=== PATIENT | female | born 2000 | race Caucasian/White ===

== ENCOUNTER 2018-01-20 17:25 | Emergency (ER) | payer OTHER ==
[2018-01-20 17:31] VITALS: BP 114/68
[2018-01-20] MEDS ORDERED: PROPARACAINE 0.5% OPHTH DROPS 15 ML LEFTEYE STA (18:39)
[2018-01-20] MEDS ORDERED: ERYTHROMYCIN OPHTH OINT 1 GM TUBE LEFTEYE STA (18:54)
--- NOTE | 2018-01-20 18:56 | ED Physician Documentation ---
PD HPI OPHTHO - Stated complaint Stated Complaint: LT EYE PX - Chief complaint Chief Complaint: Heent - History obtained from History obtained from: Patient - History of Present Illness Timing - onset: Other (Since yesterday she has had pain in the left eye without deficit in vision, light sensitivity or injury. She does not wear contacts.) Review of Systems Constitutional: denies: Fever, Chills Eyes: reports: Discharge, Irritation. denies: Loss of vision, Decreased vision, Photophobia Ears: denies: Loss of hearing, Ear pain PD PAST MEDICAL HISTORY - Past Medical History Past Medical History: No - Past Surgical History Past Surgical History: No - Present Medications Home Medications: Ambulatory Orders Medication Instructions Recorded Confirmed Erythromycin Base [Erythromycin 1 applic OP 5XD 7 Days #1 oint...g. 01/20/18 Ophthalmic Ointment] - Allergies Allergies/Adverse Reactions: Allergies Allergy/AdvReac Type Severity Reaction Status Date / Time No Known Drug Allergies Allergy Verified 01/20/18 17:31 - Social History Does the pt smoke?: No Smoking Status: Never smoker Does the pt have substance abuse?: No - Immunizations Immunizations are current?: Yes - POLST Patient has POLST: No PD ED PE NORMAL - Vitals Vital signs reviewed: Yes - General General: Alert and oriented X 3, No acute distress - HEENT HEENT: PERRL, EOMI, Other (There is a focal area of conjunctival redness inferomedial, it is not circumferential. On fluorescein examination that area of conjunctiva has uptake but there is no corneal uptake. [place] is 12 on that side.) - Neck Neck: Supple, no meningeal sign, No bony TTP - Neuro Neuro: Alert and oriented X 3, Normal speech Results - Vitals Vitals: Vital Signs - 24 hr 01/20/18 17:27 Temperature 36.3 C L Heart Rate 98 Respiratory 18 Rate Blood Pressure 114/68 O2 Saturation 100 Oxygen O2 Source Room air Departure - Departure Disposition: 01 Home, Self Care Clinical Impression: Conjunctival abrasion Qualifiers: Encounter type: initial encounter Laterality: left Qualified Code(s): S05.02XA - Injury of conjunctiva and corneal abrasion without foreign body, left eye, initial encounter Condition: Good Record reviewed to determine appropriate education?: Yes Instructions: ED Conjunctivitis Nonspecific Follow-Up: Lino Gamino MD [Provider Admit Priv/Credential] - Within 3 Days Prescriptions: Erythromycin Base [Erythromycin Ophthalmic Ointment] 1 applic OP 5XD 7 Days #1 oint...g.
== END 2018-01-20 19:05 | disposition home or self-care (01) ==
LOC: ED 17:25
DX: S05.02XA Injury of conjunctiva and corneal abrasion without foreign body, left eye, initial encounter (principal); W26.9XXA Contact with unspecified sharp object(s), initial encounter
CPT/HCPCS: 99282; 99283; J3490

== ENCOUNTER 2018-04-28 12:08 | Outpatient (CLI) | payer OTHER ==
[2018-04-28 14:14] LABS: MUDS CUTOFF CONCENTRATIONS CUTOFF CONC BELOW:
[2018-04-28 15:15] LABS: AMPHETAMINE SCREEN,URINE NEGATIVE (NEGATIVE); BENZODIAZEPINES SCREEN, URINE NEGATIVE (NEGATIVE); COCAINE SCREEN URINE NEGATIVE (NEGATIVE); METHADONE SCREEN, URINE NEGATIVE (NEGATIVE); METHAMPHETAMINES SCREEN, URINE NEGATIVE (NEGATIVE); OPIATE SCREEN, URINE NEGATIVE (NEGATIVE); OXYCODONE SCREEN, URINE NEGATIVE (NEGATIVE); PROPOXYPHENE SCREEN, URINE NEGATIVE (NEGATIVE); TRICYCLIC ANTIDEPRESSANT,URINE NEGATIVE (NEGATIVE)
== END 2018-04-28 23:59 | disposition home or self-care (01) ==
LOC: LAB.R 12:08
PROVIDERS: ATTEND Registered Nurse
DX: Z33.1 Pregnant state, incidental (principal)
CPT/HCPCS: 80306; 87491; 87591; 87797

== ENCOUNTER 2018-04-28 12:24 | Outpatient (CLI) | payer OTHER ==
[2018-04-28 12:43] LABS: BILIRUBIN,URINE NEGATIVE (NEGATIVE); GLUCOSE, URINE (UA) NEGATIVE (NEGATIVE); KETONES,URINE (UA) NEGATIVE (NEGATIVE); LEUKOCYTE ESTERASE, URINE NEGATIVE (NEGATIVE); NITRITE,URINE NEGATIVE (NEGATIVE); OCCULT BLOOD,URINE NEGATIVE (NEGATIVE); PH,URINE 6.5 PH (5.0-7.5); PROTEIN,URINE NEGATIVE (NEGATIVE); UROBILINOGEN,URINE 0.2 (NORMAL) E.U./dL (NORMAL)
[2018-04-28 12:44] LABS: CLARITY,URINE CLEAR (CLEAR)
[2018-04-29 12:18] LABS: HEPATITIS C ANTIBODY NON-REACTIVE (NON-REACTIVE)
[2018-04-29 13:06] LABS: HIV AG/AB 4TH GEN NON-REACTIVE (NON-REACTIVE)
== END 2018-04-28 12:25 | disposition home or self-care (01) ==
LOC: LAB 12:24
PROVIDERS: ATTEND Registered Nurse
DX: Z33.1 Pregnant state, incidental (principal)
CPT/HCPCS: 36415; 80306; 81001; 81003; 81599; 86592; 86803; 87086; 87389; 87491; 87591; 87797

== ENCOUNTER 2018-05-19 23:54 | Inpatient (IN) | payer OTHER ==
[2018-05-20] MEDS ORDERED: PENICILLIN G POTASSIUM 5,000,000 UNIT in SODIUM CHLORIDE 0.9% MINIBAG 100 ML IV ONE (01:40)
[2018-05-20] MEDS ORDERED: SODIUM CHLORIDE FLUSH 0.9% 10 ML SYRINGE IVP PRN (01:40)
[2018-05-20] MEDS ORDERED: LACTATED RINGERS 1,000 ML IV SCH (02:00)
[2018-05-20 03:06] LABS: BASOPHILS % (AUTO) 0.3 %; EOSINOPHILS # (AUTO) 0.1 10^3/uL (0.0-0.7); EOSINOPHILS % (AUTO) 0.6 %; HGB - HEMOGLOBIN 9.3 g/dL (12.0-16.0); LYMPHOCYTES # (AUTO) 4.5 10^3/uL (1.5-3.5); LYMPHOCYTES % (AUTO) 34.5 %; MEAN CORPUSCULAR HEMOGLOBIN 21.9 pg (27.0-31.0); MEAN CORPUSCULAR HGB CONC 32.1 g/dL (32.0-36.0); MEAN CORPUSCULAR VOLUME 68.3 fL (81.0-99.0); MEAN PLATELET VOLUME 8.6 fL (7.9-10.8); MONOCYTES # (AUTO) 0.7 10^3/uL (0.0-1.0); MONOCYTES % (AUTO) 5.6 %; NEUTROPHILS # (AUTO) 7.7 10^3/uL (1.5-6.6); PLT - PLATELET COUNT 302 10^3/uL (130-450); RED BLOOD COUNT 4.23 10^6/uL (4.20-5.40); RED CELL DISTRIBUTION WIDTH 17.9 % (12.0-15.0)
[2018-05-20] MEDS ORDERED: OXYTOCIN/SODIUM CHLORIDE 500 ML IV ONE (03:20)
[2018-05-20 03:31] LABS: PLATELET ESTIMATE, MANUAL NORMAL (130-450,000) (NORMAL)
[2018-05-20] MEDS ORDERED: fent/BUPIV 2 MCG/0.125% 250 ML EP ONE (03:42)
[2018-05-20] MEDS ORDERED: fentaNYL 100 MCG/2 ML VIAL IVP PRN (05:13)
[2018-05-20] MEDS ORDERED: fentaNYL 100 MCG/2 ML VIAL ONE ×2 (05:17→06:34)
[2018-05-20] MEDS ORDERED: PENICILLIN G POTASSIUM 2,500,000 UNIT in SODIUM CHLORIDE 0.9% 100ML 100 ML IV SCH (06:00)
[2018-05-20] MEDS ORDERED: LACTATED RINGERS 500 ML IV ONE (06:07)
[2018-05-20] MEDS ORDERED: NALOXONE 0.4 MG/ML VIAL IVP PRN (06:07)
[2018-05-20] MEDS ORDERED: diphenhydrAMINE INJ 50 MG/ML VIAL IVP PRN (06:07)
[2018-05-20] MEDS ORDERED: NALBUPHINE 10 MG/ML AMP IVP PRN (06:07)
[2018-05-20] MEDS ORDERED: ONDANSETRON 4 MG/2 ML VIAL IVP PRN (06:07)
[2018-05-20] MEDS ORDERED: fent/BUPIV 2 MCG/0.125% 250 ML EP PRN (06:07)
[2018-05-20] MEDS ORDERED: METOCLOPRAMIDE 10 MG/2 ML VIAL IVP PRN (06:07)
[2018-05-20] MEDS ORDERED: ePHEDrine 50 MG/ML VIAL IVP PRN (06:07)
--- NOTE | 2018-05-20 06:10 | ANESTHESIA ---
Pre-Anesthesia VS, & Labs - Diagnosis term labor - Procedure POONAM Vital Signs: Temp Pulse Resp BP Pulse Ox 36.6 C 67 18 127/85 H 100 05/20/18 00:04 05/20/18 00:04 05/20/18 00:04 05/20/18 00:04 05/20/18 00:04 Height 4 ft 10.5 in Weight (kg) 61.87 kg Body Mass Index 24.0 - NPO Last Fluid Intake: clears t/o day - Is Patient ?: Yes - Lab Results Current Lab Results: Laboratory Tests 05/20/18 02:20: WBC 13.0 H, RBC 4.23, Hgb 9.3 L, Hct 28.9 L, MCV 68.3 L, MCH 21.9 L, MCHC 32.1, RDW 17.9 H, Plt Count 302, MPV 8.6, Neut # (Auto) 7.7 H, Lymph # (Auto) 4.5 H, [place] # (Auto) 0.7, Eos # (Auto) 0.1, Baso # (Auto) 0.0, Absolute Nucleated RBC 0.00, Nucleated RBC % 0.0, Manual Slide Review Indicated, Platelet Estimate NORMAL (130-450,000), RBC Morph Micro Appear 1+ POLYCHROMASIA Lab results reviewed: Yes Fish Bones: 05/20/18 02:20 Home Medications and Allergies Active Medications Fentanyl (Fentanyl) 100 mcg IVP ONCE PRN; Protocol PRN Reason: PAIN Stop: 05/20/18 23:59 Last Admin: 05/20/18 05:23 Dose: 100 mcg Lactated Ringer's (Lr) 1,000 mls @ 150 mls/hr IV .[id number] [facility] Last Admin: 05/20/18 02:40 Dose: 150 mls/hr Penicillin G Potassium 2,500, (000 unit/ Sodium Chloride) 100 mls @ 200 mls/hr IV Q4H [facility] Sodium Chloride (Normal Saline Flush 0.9%) 10 ml IVP PRN PRN PRN Reason: NEEDED PER PROVIDER ORDERS Last Admin: 05/20/18 02:45 Dose: 10 ml Sodium Chloride (Normal Saline Flush 0.9%) 10 ml IVP 0100,0900,1700 [facility] Prenatl Vit6/Iron/FA/B12/Ca/D3 [Mteryti Combo Pack] 1 tab PO DAILY 01/20/18 Allergies/Adverse Reactions: Allergies Allergy/AdvReac Type Severity Reaction Status Date / Time No Known Drug Allergies Allergy Verified 01/20/18 17:31 Anes History & Medical History - Medical History Smoking Status: Never smoker Exam General: Alert, Oriented x3, Cooperative Dental: WNL Mouth Openin Fingerbreadth Neck Mobility: Normal Mallampati classification: II Thyromental Distance: 4-6 cm Respiratory: No respiratory distress, No accessory muscle use Cardiovascular: Regular rate Mental/Cognitive Status: Alert/Oriented X3 Plan Anesthesia Type: Epidural Consent for Procedure(s) Verified and Reviewed: Yes Code Status: Attempt Resuscitation ASA classification: 2-Mild systemic disease Is this case an emergency?: No
--- NOTE | 2018-05-20 06:21 | HISTORY & PHYSICAL EXAMINATION ---
Admit History - Visit Reason Visit Reason: Contractions - : 1 Parity: 0 Premature: 0 Ectopic: 0 : 0 Care: positive: [facility] Risk/History: positive: None Complications This : positive: None Smoking Status: Never smoker - Mother's Labs Mother's Blood Type: positive: O Mother's RH: positive: Positive GBS: positive: Group B Strep Positive Rubella Status: positive: Immune Meds/Allgy - Home Medications Home Medications: Ambulatory Orders Medication Instructions Recorded Confirmed Erythromycin Base [Erythromycin 1 applic OP 5XD 7 Days #1 oint...g. 01/20/18 Ophthalmic Ointment] Prenatl Vit6/Iron/FA/B12/Ca/D3 1 tab PO DAILY 01/20/18 01/20/18 [Mteryti Combo Pack] - Allergies Allergies/Adverse Reactions: Allergies Allergy/AdvReac Type Severity Reaction Status Date / Time No Known Drug Allergies Allergy Verified 01/20/18 17:31 Review of Systems - Constitutional Constitutional: reports: Fatigue. denies: Fever, Chills - Eyes Eyes: denies: Blurred vision, Spots in vision, Dipolpia - Cardiovascular Cariovascular: denies: Palpitations, Chest pain, Edema - Respiratory Respiratory: denies: Cough, Wheezing - Gastrointestinal Gastrointestinal: denies: Abdominal pain, Constipation, Diarrhea, Nausea, Vomiting - Genitourinary Genitourinary: denies: Dysuria - Integumentary Integumentary: denies: Rash, Pruritis - Neurological Neurological: denies: Headache Physical - Abdominal Exam Vital Signs: Temp Pulse Resp BP Pulse Ox 36.6 C 67 18 127/85 H 100 05/20/18 00:04 05/20/18 00:04 05/20/18 00:04 05/20/18 00:04 05/20/18 00:04 Contraction Intensity: positive: Strong Uterine Resting Tone: positive: Soft - Monitoring Strip Review: positive: Category I - Presentation Presentation: positive: Vertex - Vaginal Exam Membranes: positive: Membranes intact Dilation (in cm): 8-9 Effacement (%): 100 Station: positive: 0 Cervical Position: positive: Anterior - Speculum Exam Speculum Exam Performed: positive: No Plan for Labor - Plan For Labor I expect patient to be DC'd or transferred within 96 hours.: Yes Plan for Labor: HPI: This 17yo @ 40.3wks gestation phoned through the answering service on 05/20/2018 at 2135 stating she was in active labor and she was directed to present to [facility]. Upon arrival she was noted to be 4/90/-1 with a noted change to 5/90/-1 an hour later. She was admitted to L&D for management. She was a transfer of care from [facility] at 35wks gestation. Her has been notable for GERD- treated with Zantac, UTI in early - neg third trimester culture, Anemia - treated with Fe, and her GBS positive status. Dating criteria: LMP: 08/11/2017 c/w initial U/S Initial ultrasound OB History: G1: Current Medical Hx: Anxiety; depression Sugical History: none Social Hx: Never smoker, no ETOH or IVDA, Deandree. Family Hx: Asthma - mother; Diabetes - maternal grandfather Immunizations: Tdap 04/28/2018 Influenza 04/28/2018 labs: O pos, antibody neg Hgb 10.3; Hct 31.8 PLT 312 Hep B neg Rubella immune GC/CT neg RPR non-reactive Hep C neg HIV non-reactive 1 hour GTT 102 Hgb 9.0; Hct 27.6 PLT 491 Antibody neg UTOX neg GBS POSITIVE Ultrasound: FAS 01/05/2018 WNL; Anterior placenta, no previa. 3VC. Size c/w dates. A: 17yo @ 40.2wks gestation by LMP Active labor GBS positive P: Admit for expectant management Epidural per maternal request Penicillin for GBS prophylaxis Anticipate spontaneous vaginal delivery
[2018-05-20] MEDS ORDERED: LIDOCAINE 2% 10 ML MDV ONE (06:35)
--- NOTE | 2018-05-20 06:48 | PROVIDER PROGRESS NOTE ---
Labor Progress Note - Uterine Monitoring Uterine Monitoring Mode: positive: External toco Contraction Frequency (min/apart): 2-3 Contraction Intensity: positive: Strong Uterine Resting Tone: positive: Soft - Monitoring Monitor Mode: positive: External ultrasound Heart Rate Baseline: 130 Heart Rate Variability: positive: Moderate (6-25 bmp) Accelerations: positive: Present, 15x15 Decelerations: positive: None Strip Review: positive: Category I - Vaginal Exam Dilation (in cm): 8-9 Effacement (%): 100 Station: 1 Cervical Position: Anterior - Labor Progress Note Labor Progress Note/Additional Text: S: Patient sitting at edge of bed for epidural placement upon my arrival. Now she is resting in bed more comfortable with her epidural and resting left leg on peanut ball. She reports improvement in her discomfort but is feeling very tired and is hoping to nap for awhile. O: SVE 8-9/100/+1, vertex. BOW intact FHR baseline 130, moderate variability, + accels, no decels Contractions palpate firm every 2-3 minutes with soft resting tone A: 17yo @ 40.3wks gestation by LMP c/w first trimester U/S GBS positive - penicillin for prophylaxis Spontaneous active labor FHR Category I Epidural in place for pain management P: Continuous monitoring Continue rotation in bed on peanut ball Anticipate spontaneous vaginal delivery
[2018-05-20] MEDS ORDERED: LACTATED RINGERS 500 ML IV SCH (06:50)
[2018-05-20] MEDS ORDERED: IRON SUCROSE 100 MG in SODIUM CHLORIDE 0.9% 100ML 100 ML IV ONE (07:56)
[2018-05-20] MEDS ORDERED: LIDOCAINE-MPF 1% 30 ML VIAL ONE (09:22)
[2018-05-20] MEDS ORDERED: WITCH HAZEL/GLYCERIN 1 EACH MED..PAD TOP PRN (09:46)
[2018-05-20] MEDS ORDERED: HYDROCORTISONE 1% CREAM 28 GM TUBE PR PRN (09:46)
--- NOTE | 2018-05-20 10:01 | DELIVERY NOTE ---
Delivery Note - Labor Labor: positive: Spontaneous - Delivery Method Delivery Method: positive: Spontaneous vaginal delivery - Presentation Presentation: positive: Vertex, LOT - left occiput transverse - Nuchal Cord Nuchal Cord: positive: Present, Reduced - Amniotic Fluid Description Amniotic Fluid Description: positive: Clear - Episiotomy Type Episiotomy Type: positive: None - Laceration Laceration: positive: 1st degree, Vaginal - Suture Suture Type: positive: Vicryl Suture Size: positive: 3-0 - Delivery Outcome Delivery Outcome: positive: Livebirth - : positive: Placed in direct skin contact with mother, Bulb syringe, Stimulated, Warmed, [place] used sex: positive: Male - Cord Cord: positive: 3 vessels - Placenta Placenta: positive: Intact, Spontaneous, Meconium stained - Estimated Blood Loss Estimated Blood Loss (in cc): 250 - Post Delivery Events Post Delivery Events: positive: No post delivery events - Delivery Comments (Free Text/Narrative) Delivery Comments (Free Text/Narrative): This 17yo @ 40.3wks gestation presented to [facility] with c/o contractions which began at approximately 2200 on 05/19/2018. Her cervix was noted to be 4/90/-1 and vertex. FHR pattern demonstrated Category I throughout. Normal labor course. She received penicillin for GBS prophylaxis x 2 total doses. Attempted epidural placement unsuccessful in relieving patient's pain. SROM occurred at 0716 and was noted to be a moderate amount of meconium stained amniotic fluid. The patient progress to c/c/0 at 0808 for a first stage of 10 hours and 8 minutes. She progressed to spontaneously deliver a viable male at 0909 on 05/20/2018 for a total second stage of 1 hour and 1 min. Loose nuchal cord x 1 easily reduced. The was placed on maternal abdomen, stimulated, dried, and placed skin to skin. 's were 8 and 9 at 1 and 5 minutes respectively. Pitocin administered via IV for hemostasis. The umbilical cord was allowed to stop pulsating at which time it was doubly clamped by CNM and cut by FOB. Cord blood was obtained. Placenta delivered spontaneously and intact at 0914 and was noted to be meconium stained with meconium stained amniotic membranes - placenta was sent to pathology. 3VC. EBL 250mL. Uterine fundus firm and there is no excessive bleeding. The perineum, vagina, and cervix were inspected and found to have 1cm, shallow laceration in vagina at introitus which was repaired with 3-[address]-1 needle with interrupted stitch x1 in standard fashion under sterile conditions. Adequate hemostasis was achieved. Tissues well approximated. initiated. Family bonding well.
[2018-05-20] MEDS: ACETAMINOPHEN 500 MG TABLET PO SCH ×2 (10:30→18:11)
[2018-05-20] MEDS: IBUPROFEN 800 MG TABLET PO SCH ×3 (10:30→22:37)
[2018-05-20 19:12] LABS: BASOPHILS % (AUTO) 0.2 %; EOSINOPHILS % (AUTO) 0.1 %; HGB - HEMOGLOBIN 7.2 g/dL (12.0-16.0); LYMPHOCYTES # (AUTO) 4.1 10^3/uL (1.5-3.5); LYMPHOCYTES % (AUTO) 23.3 %; MEAN CORPUSCULAR HEMOGLOBIN 21.5 pg (27.0-31.0); MEAN CORPUSCULAR HGB CONC 31.1 g/dL (32.0-36.0); MEAN CORPUSCULAR VOLUME 69.2 fL (81.0-99.0); MEAN PLATELET VOLUME 8.1 fL (7.9-10.8); MONOCYTES % (AUTO) 5.6 %; NEUTROPHILS # (AUTO) 12.4 10^3/uL (1.5-6.6); NEUTROPHILS % (AUTO) 70.8 %; PLT - PLATELET COUNT 246 10^3/uL (130-450); RED BLOOD COUNT 3.33 10^6/uL (4.20-5.40); RED CELL DISTRIBUTION WIDTH 18.3 % (12.0-15.0); WHITE BLOOD COUNT 17.6 x10^3/uL (4.8-10.8)
[2018-05-20] MEDS ORDERED: IRON SUCROSE 200 MG in SODIUM CHLORIDE 0.9% 100ML 100 ML IV ONE (19:45)
[2018-05-20] MEDS: DOCUSATE SODIUM 100 MG CAPSULE PO SCH (20:07)
[2018-05-20] MEDS: SODIUM CHLORIDE FLUSH 0.9% 10 ML SYRINGE IVP SCH (20:08)
[2018-05-21] MEDS: IBUPROFEN 800 MG TABLET PO SCH ×3 (03:58→16:07)
[2018-05-21] MEDS: ACETAMINOPHEN 500 MG TABLET PO SCH ×3 (03:58→16:48)
[2018-05-21 07:30] LABS: BASOPHILS % (AUTO) 0.2 %; EOSINOPHILS % (AUTO) 0.3 %; MEAN CORPUSCULAR VOLUME 68.7 fL (81.0-99.0); MEAN PLATELET VOLUME 8.4 fL (7.9-10.8); MONOCYTES # (AUTO) 0.7 10^3/uL (0.0-1.0); MONOCYTES % (AUTO) 4.6 %; NEUTROPHILS # (AUTO) 11.2 10^3/uL (1.5-6.6); NEUTROPHILS % (AUTO) 69.9 %; PLT - PLATELET COUNT 242 10^3/uL (130-450); RED BLOOD COUNT 3.02 10^6/uL (4.20-5.40); RED CELL DISTRIBUTION WIDTH 18.4 % (12.0-15.0)
[2018-05-21 07:34] LABS: HGB - HEMOGLOBIN 6.6 g/dL (12.0-16.0)
[2018-05-21] MEDS ORDERED: HYDROcod/ACETAM 5/325 MG TABLET PO PRN (07:41)
--- NOTE | 2018-05-21 07:57 | PROVIDER PROGRESS NOTE ---
Subjective - Subjective Subjective: S: Bonding well with baby. with some difficulty. She states the baby does not want to stay latched. She has been hand expressing and teaspoon feeding and feels comfortable with this. She is hoping that once her milk comes in the baby will be more excited about staying latched. She denies CHILDERS, dizziness, or light headedness. She c/o full body soreness that is mostly in her upper back and arms. She denies consistent pain in her perineum and states her discomfort mostly occurs with prolonged periods of sitting. Mood is good. O: Hgb 9.3 on admit --> 7.2 05/20/2018 @ 7.2 --> 6.6 05/21/2018 @ 0715 BP T36.8, HR 79, BP 103-62-->98/57 [place] diffusely noted over her face normocephalic, atraumatic Heart RRR w/o M/G/R Lungs CTAB Abdomen soft and nontender with fundus firm at U-1 Bilateral LE's no edema A: 17yo -->P1 PPD#1 s/p TSVD of viable male over intact perineum Vaginal laceration repaired - intact Severe anemia -s/p IV iron transfusion x 2 - #3 pending. Asymptomatic P: Continue routine care and medications Specific attention paid to support today Consult longitudinal float operator physician to collaborate plan of care for management of severe anemia Objective - Vital Signs/Intake & Output Vital Signs: Vital Signs x48h Temp Pulse Resp BP Pulse Ox 05/21/18 04:01 36.5 C 80 16 108/57 L 100 05/21/18 00:30 36.9 C 73 16 103/62 100 Intake & Output: Intake & Output 05/18/18 05/19/18 05/20/18 05/21/18 23:59 23:59 23:59 23:59 Intake Total 2855 Output Total 475 Balance 2380 - Lab Results Fish Bones: 05/21/18 07:15 Other Labs: Lab Results x24hrs 05/21/18 05/20/18 Range/Units 07:15 18:58 WBC 16.0 H 17.6 H (4.8-10.8) x10^3/uL RBC 3.02 L 3.33 L (4.20-5.40) 10^6/uL Hgb 6.6 L* 7.2 L (12.0-16.0) g/dL Hct 20.7 L 23.0 L (37.0-47.0) % MCV 68.7 L 69.2 L (81.0-99.0) fL MCH 22.0 L 21.5 L (27.0-31.0) pg MCHC 32.0 31.1 L (32.0-36.0) g/dL RDW 18.4 H 18.3 H (12.0-15.0) % Plt Count 242 246 (130-450) 10^3/uL MPV 8.4 8.1 (7.9-10.8) fL Neut # (Auto) 11.2 H 12.4 H (1.5-6.6) 10^3/uL Lymph # (Auto) 4.0 H 4.1 H (1.5-3.5) 10^3/uL [place] # (Auto) 0.7 1.0 (0.0-1.0) 10^3/uL Eos # (Auto) 0.0 0.0 (0.0-0.7) 10^3/uL Baso # (Auto) 0.0 0.0 (0.0-0.1) 10^3/uL Absolute Nucleated RBC 0.01 0.00 x10^3/uL Nucleated RBC % 0.0 0.0 /100WBC
[2018-05-21] MEDS: HYDROcod/ACETAM 5/325 MG TABLET PO PRN ×2 (08:39→20:02)
[2018-05-21] MEDS ORDERED: diphenhydrAMINE 25 MG CAPSULE PO PRN (08:58)
[2018-05-21] MEDS ORDERED: IRON SUCROSE 200 MG in SODIUM CHLORIDE 0.9% 100ML 100 ML IV ONE (09:00)
[2018-05-21] MEDS ORDERED: diphenhydrAMINE INJ 50 MG/ML VIAL IVP PRN (09:17)
[2018-05-21] MEDS ORDERED: TRANEXAMIC ACID 1,000 MG in SODIUM CHLORIDE 0.9% 100ML 100 ML IV ONE (09:17)
[2018-05-21] MEDS: DOCUSATE SODIUM 100 MG CAPSULE PO SCH ×2 (09:53→22:34)
[2018-05-21] MEDS: SODIUM CHLORIDE FLUSH 0.9% 10 ML SYRINGE IVP SCH ×3 (09:54→22:34)
[2018-05-21] MEDS ORDERED: SODIUM CHLORIDE 0.9% 1,000 ML IV SCH (10:00)
[2018-05-21] MEDS ORDERED: CHERRY SYRUP 10 ML UDC PO ONE ×2 (10:59→17:22)
[2018-05-21] MEDS: METHYLERGONOVINE 0.2 MG/ML AMP PO SCH ×2 (11:24→17:21)
--- NOTE | 2018-05-21 11:37 | PROVIDER PROGRESS NOTE ---
Subjective - Subjective Subjective: Secondary to moderate flow of vaginal bleeding in combination with severe anemia and chronic anemia, the medical care for this patient has been handed off to Dr. Mari Caldera at this time. Pt verbalized understanding and denies questions or concerns about her care at this time. Objective - Vital Signs/Intake & Output Vital Signs: Vital Signs x48h Temp Pulse Pulse Resp BP BP Pulse Ox 05/21/18 11:00 36.6 C 85 16 111/58 L 05/21/18 10:38 36.5 C 88 16 111/62 05/21/18 07:48 36.8 C 79 16 98/57 L 99 05/21/18 04:01 36.5 C 80 16 108/57 L 100 Intake & Output: Intake & Output 05/18/18 05/19/18 05/20/18 05/21/18 23:59 23:59 23:59 23:59 Intake Total 2855 110 Output Total 475 Balance 2380 110 - Lab Results Fish Bones: 05/21/18 07:15 Other Labs: Lab Results x24hrs 05/21/18 05/21/18 05/20/18 Range/Units 07:15 07:15 18:58 WBC 16.0 H 17.6 H (4.8-10.8) x10^3/uL RBC 3.02 L 3.33 L (4.20-5.40) 10^6/uL Hgb 6.6 L* 7.2 L (12.0-16.0) g/dL Hct 20.7 L 23.0 L (37.0-47.0) % MCV 68.7 L 69.2 L (81.0-99.0) fL MCH 22.0 L 21.5 L (27.0-31.0) pg MCHC 32.0 31.1 L (32.0-36.0) g/dL RDW 18.4 H 18.3 H (12.0-15.0) % Plt Count 242 246 (130-450) 10^3/uL MPV 8.4 8.1 (7.9-10.8) fL Neut # (Auto) 11.2 H 12.4 H (1.5-6.6) 10^3/uL Lymph # (Auto) 4.0 H 4.1 H (1.5-3.5) 10^3/uL [place] # (Auto) 0.7 1.0 (0.0-1.0) 10^3/uL Eos # (Auto) 0.0 0.0 (0.0-0.7) 10^3/uL Baso # (Auto) 0.0 0.0 (0.0-0.1) 10^3/uL Absolute Nucleated RBC 0.01 0.00 x10^3/uL Nucleated RBC % 0.0 0.0 /100WBC Blood Type Blood Type Recheck O POSITIVE Antibody Screen Crossmatch IS Only 05/20/18 Range/Units 02:20 WBC (4.8-10.8) x10^3/uL RBC (4.20-5.40) 10^6/uL Hgb (12.0-16.0) g/dL Hct (37.0-47.0) % MCV (81.0-99.0) fL MCH (27.0-31.0) pg MCHC (32.0-36.0) g/dL RDW (12.0-15.0) % Plt Count (130-450) 10^3/uL MPV (7.9-10.8) fL Neut # (Auto) (1.5-6.6) 10^3/uL Lymph # (Auto) (1.5-3.5) 10^3/uL [place] # (Auto) (0.0-1.0) 10^3/uL Eos # (Auto) (0.0-0.7) 10^3/uL Baso # (Auto) (0.0-0.1) 10^3/uL Absolute Nucleated RBC x10^3/uL Nucleated RBC % /100WBC Blood Type O POSITIVE Blood Type Recheck Antibody Screen NEGATIVE Crossmatch IS Only See Detail
--- NOTE | 2018-05-21 12:05 | Ultrasound Report ---
Reason: Retained clot vs POC in lower uterine segment Procedure Date: 05/21/2018 Accession Number: [id number] / [id number] Procedure: US - Pelvic Complete CPT Code: FULL RESULT: EXAM: PELVIC ULTRASOUND EXAM DATE: 05/21/2018 11:38 AM. CLINICAL HISTORY: Retained clot versus products of conception in lower uterine segment. COMPARISON: None. TECHNIQUE: Realtime transabdominal pelvic scan performed to identify the uterus and adnexa and as an overview of other pelvic structures, with static image documentation. FINDINGS: Uterus: 18.5 x 9.0 x 13.9 cm, volume 1216 cc. Anteverted position. Heterogeneous thickened myometrium in keeping with the state. Masses: None within the myometrium. Endometrium: Normal portions of the endometrium measure approximately 10 mm. A small amount of presumed blood clot and fluid is seen in the fundal endometrium. Within the lower uterine segment near the cervix is a heterogeneous hypoechoic mass which retains a relatively spherical shape measuring 3.2 x 5.4 x 4.5 cm and has no surrounding fluid its position within the endometrium from the myometrial wall, mass effect on surrounding myometrium. Color Doppler demonstrates no internal vascularity. Cervix: See above. Right Ovary: 2.6 x 1.8 x 2.3 cm, volume 5.9 cc. Normal echotexture and blood flow. Left Ovary: 3.2 x 1.9 x 1.5 cm, volume 4.8 cc. Normal echotexture and blood flow. Free Fluid: None. Other: None. IMPRESSION: Nonvascular-appearing mass in the lower uterine segment demonstrates a sonographic appearance and shape as well as mass effect on the nearby myometrium, favor avascular tissue. CATRACHITO The call report notification system was initiated by Dr. Marcello Goodwin at 12:04 PM on 05/21/2018. ADDENDUM: 05/21/18 12:39 The above call report findings were discussed with Dr. Caldera by Dr. Marcello Goodwin at 12:45 PM on 05/21/2018.
--- NOTE | 2018-05-21 12:55 | PROVIDER PROGRESS NOTE ---
Subjective - Subjective Subjective: Asked by CNM to assume care for this 17yo P1 who is PPD #1 s/p at term. complicated by anemia--came in with Hct of 29, dropped to around 21 immediately PP and then around 18 after that this am. Pt with menses usually a soaked pad q2-3h. Reports that her PP bleeding has been more than that. Also passing lemon sized clots. Feeling tired. No CHILDERS, no SOB, no CP, no dizzy, not faint. Pt AVSS but BP on the low side. Abd soft, nt/nd. Fundus firm and NT at the umbilicus. Bedside US with possible retained POC in the SUSY. Bladder is empty. Delivery was uncomplicated. Discussed that I recommend transfusion now as she is close to having anemia that could become serious, and is having more lochia than usual. Discussed risks and benifet, questions answered and consent signed. US ordered to r/o adherent placenta. 2U PRBC transfuse now, will premedicate. TXA to treat ongoing bleeding. Methergine scheduled to try to pass clot. Formal US with possible retained POC but no peripheral flow. Will try to pass it with methergine and misoprostol. Objective - Vital Signs/Intake & Output Vital Signs: Vital Signs x48h Temp Pulse Pulse Resp BP BP Pulse Ox 05/21/18 11:00 97.9 F 85 16 111/58 L 05/21/18 10:38 97.7 F 88 16 111/62 05/21/18 07:48 98.2 F 79 16 98/57 L 99 Intake & Output: Intake & Output 05/18/18 05/19/18 05/20/18 05/21/18 23:59 23:59 23:59 23:59 Intake Total 2855 110 Output Total 475 Balance 2380 110 - Lab Results Fish Bones: 05/21/18 07:15 Other Labs: Lab Results x24hrs 05/21/18 05/21/18 05/20/18 Range/Units 07:15 07:15 18:58 WBC 16.0 H 17.6 H (4.8-10.8) x10^3/uL RBC 3.02 L 3.33 L (4.20-5.40) 10^6/uL Hgb 6.6 L* 7.2 L (12.0-16.0) g/dL Hct 20.7 L 23.0 L (37.0-47.0) % MCV 68.7 L 69.2 L (81.0-99.0) fL MCH 22.0 L 21.5 L (27.0-31.0) pg MCHC 32.0 31.1 L (32.0-36.0) g/dL RDW 18.4 H 18.3 H (12.0-15.0) % Plt Count 242 246 (130-450) 10^3/uL MPV 8.4 8.1 (7.9-10.8) fL Neut # (Auto) 11.2 H 12.4 H (1.5-6.6) 10^3/uL Lymph # (Auto) 4.0 H 4.1 H (1.5-3.5) 10^3/uL [place] # (Auto) 0.7 1.0 (0.0-1.0) 10^3/uL Eos # (Auto) 0.0 0.0 (0.0-0.7) 10^3/uL Baso # (Auto) 0.0 0.0 (0.0-0.1) 10^3/uL Absolute Nucleated RBC 0.01 0.00 x10^3/uL Nucleated RBC % 0.0 0.0 /100WBC Blood Type Blood Type Recheck O POSITIVE Antibody Screen Crossmatch IS Only 05/20/18 Range/Units 02:20 WBC (4.8-10.8) x10^3/uL RBC (4.20-5.40) 10^6/uL Hgb (12.0-16.0) g/dL Hct (37.0-47.0) % MCV (81.0-99.0) fL MCH (27.0-31.0) pg MCHC (32.0-36.0) g/dL RDW (12.0-15.0) % Plt Count (130-450) 10^3/uL MPV (7.9-10.8) fL Neut # (Auto) (1.5-6.6) 10^3/uL Lymph # (Auto) (1.5-3.5) 10^3/uL [place] # (Auto) (0.0-1.0) 10^3/uL Eos # (Auto) (0.0-0.7) 10^3/uL Baso # (Auto) (0.0-0.1) 10^3/uL Absolute Nucleated RBC x10^3/uL Nucleated RBC % /100WBC Blood Type O POSITIVE Blood Type Recheck Antibody Screen NEGATIVE Crossmatch IS Only See Detail
[2018-05-21] MEDS ORDERED: miSOPROStol 200 MCG TABLET BC ONE (13:00)
--- NOTE | 2018-05-21 18:01 | PROVIDER PROGRESS NOTE ---
Subjective - Subjective Subjective: Patient received her 1st unit of PRBC without incident. After that her IV failed and had to be restarted. Was late in getting the 2nd PRBC in. About 1/[address] the bag, patient had sx of fever. Temp found to be 100.5, then went up to 39.5 degrees. Feeling normal except for the fever. Has been very sore all over her body since delivery including legs, arms, shoulders, neck, back, and chest. None of this discomfort has worsened today. VB is much less now. No shortness of breath, no cough, no wheeze. getting a lot of support--latch has been difficult. Ambulating and urinating OK. Vulva with same amount of pain as always. VB is less. Mood is OK. PMH: anx/dep PSH none Allergies: none Meds: PNV and iron SH: no t/e/d BP and HR normal. Lungs CTA bilat. Abd soft, nt/nd Fundus firm, nontender, 4cm below umbilicus Repeat US with the organized clot vs. POC lower now--is nearly at the cervix. A/P: 17yo P1 PPD #1 s/p at term. Complicated by antepartum anemia that worsened post delivery. Received TXA x1. Then got 1.3 U of PRBC. Now having a reaction to the transfusion. Pt has been about 1 hour since her first fever and has not decompensated. Lungs are clear and no respiratory distress. No evidence of DIC clinically. Unlikely to be septic from her retained products--unlikely to spike so quickly--and uterus is nontender. Doing routine checks of the bag of blood for gram stain and cultures. Hemolysis labs, rety ping, and repeat CBC are pending. Getting tylenol. Temp could also be related to misoprostol. Will observe--supsect febrile non-hemolytic transfusion reaction. Patient was premedicated for her first unit but time passed between the first and the second. Retained product of conception vs. clot: is getting methergine scheduled. Had misoprostol 800mcg x1 today. Getting lower in the uterus pt likely to pass them without incident. Doubt that she has endomyometritis or sepsis with her tempe rature--she is not tender in the area, bleeding is less. Otherwise routine care with support. Objective - Vital Signs/Intake & Output Vital Signs: Vital Signs x48h Temp Pulse Pulse Resp BP BP 05/21/18 17:45 99.0 F 99 20 126/83 H 05/21/18 17:41 134/93 H 05/21/18 17:38 101.7 F H 106 H 20 141/76 H 05/21/18 17:26 102.6 F H 84 24 138/81 H 05/21/18 17:20 94 127/88 H 05/21/18 17:16 99.9 F H 82 22 126/84 H 05/21/18 16:55 100.9 F H 77 22 134/80 H 05/21/18 15:52 99.1 F 05/21/18 15:16 98.6 F 77 20 125/80 05/21/18 15:03 98.1 F 73 20 122/74 05/21/18 14:49 98.1 F 73 20 122/74 05/21/18 11:00 97.9 F 85 16 111/58 L 05/21/18 10:38 97.7 F 88 16 111/62 Intake & Output: Intake & Output 05/18/18 05/19/18 05/20/18 05/21/18 23:59 23:59 23:59 23:59 Intake Total 2855 653 Output Total 475 550 Balance 2380 103 - Lab Results Fish Bones: 05/21/18 07:15 Other Labs: Lab Results x24hrs 05/21/18 05/21/18 05/20/18 Range/Units 07:15 07:15 18:58 WBC 16.0 H 17.6 H (4.8-10.8) x10^3/uL RBC 3.02 L 3.33 L (4.20-5.40) 10^6/uL Hgb 6.6 L* 7.2 L (12.0-16.0) g/dL Hct 20.7 L 23.0 L (37.0-47.0) % MCV 68.7 L 69.2 L (81.0-99.0) fL MCH 22.0 L 21.5 L (27.0-31.0) pg MCHC 32.0 31.1 L (32.0-36.0) g/dL RDW 18.4 H 18.3 H (12.0-15.0) % Plt Count 242 246 (130-450) 10^3/uL MPV 8.4 8.1 (7.9-10.8) fL Neut # (Auto) 11.2 H 12.4 H (1.5-6.6) 10^3/uL Lymph # (Auto) 4.0 H 4.1 H (1.5-3.5) 10^3/uL [place] # (Auto) 0.7 1.0 (0.0-1.0) 10^3/uL Eos # (Auto) 0.0 0.0 (0.0-0.7) 10^3/uL Baso # (Auto) 0.0 0.0 (0.0-0.1) 10^3/uL Absolute Nucleated RBC 0.01 0.00 x10^3/uL Nucleated RBC % 0.0 0.0 /100WBC Blood Type Blood Type Recheck O POSITIVE Antibody Screen Crossmatch IS Only 05/20/18 Range/Units 02:20 WBC (4.8-10.8) x10^3/uL RBC (4.20-5.40) 10^6/uL Hgb (12.0-16.0) g/dL Hct (37.0-47.0) % MCV (81.0-99.0) fL MCH (27.0-31.0) pg MCHC (32.0-36.0) g/dL RDW (12.0-15.0) % Plt Count (130-450) 10^3/uL MPV (7.9-10.8) fL Neut # (Auto) (1.5-6.6) 10^3/uL Lymph # (Auto) (1.5-3.5) 10^3/uL [place] # (Auto) (0.0-1.0) 10^3/uL Eos # (Auto) (0.0-0.7) 10^3/uL Baso # (Auto) (0.0-0.1) 10^3/uL Absolute Nucleated RBC x10^3/uL Nucleated RBC % /100WBC Blood Type O POSITIVE Blood Type Recheck Antibody Screen NEGATIVE Crossmatch IS Only See Detail
[2018-05-21 18:15] LABS: BASOPHILS % (AUTO) 0.3 %; EOSINOPHILS # (AUTO) 0.1 10^3/uL (0.0-0.7); EOSINOPHILS % (AUTO) 0.4 %; HGB - HEMOGLOBIN 10.7 g/dL (12.0-16.0); LYMPHOCYTES # (AUTO) 4.8 10^3/uL (1.5-3.5); LYMPHOCYTES % (AUTO) 25.2 %; MEAN CORPUSCULAR HEMOGLOBIN 23.5 pg (27.0-31.0); MEAN CORPUSCULAR HGB CONC 32.2 g/dL (32.0-36.0); MEAN CORPUSCULAR VOLUME 73.1 fL (81.0-99.0); MEAN PLATELET VOLUME 8.2 fL (7.9-10.8); MONOCYTES # (AUTO) 0.7 10^3/uL (0.0-1.0); MONOCYTES % (AUTO) 3.8 %; NEUTROPHILS # (AUTO) 13.3 10^3/uL (1.5-6.6); NEUTROPHILS % (AUTO) 70.3 %; PLT - PLATELET COUNT 275 10^3/uL (130-450); RED BLOOD COUNT 4.54 10^6/uL (4.20-5.40); RED CELL DISTRIBUTION WIDTH 20.8 % (12.0-15.0); WHITE BLOOD COUNT 18.9 x10^3/uL (4.8-10.8)
--- NOTE | 2018-05-21 19:01 | PROVIDER PROGRESS NOTE ---
Subjective - Subjective Subjective: Pt c/o an increasing amount of pleuritic chest pain. Legs are without tenderness or swelling. Lungs CTA bilat. Cor RRR no murmurs. Pt is sitting up and speaking with ease to her family. Will do PE workup now--CT, EKG. Objective - Vital Signs/Intake & Output Vital Signs: Vital Signs x48h Temp Pulse Pulse Resp BP BP BP 05/21/18 18:50 100.9 F H 98 16 122/61 05/21/18 18:25 99.3 F 93 16 133/75 H 05/21/18 18:20 82 130/85 H 05/21/18 18:15 98.8 F 94 16 123/85 H 05/21/18 18:10 99.9 F H 95 18 130/84 H 05/21/18 18:05 100.0 F H 92 20 133/87 H 05/21/18 18:00 99.3 F 93 20 135/83 H 05/21/18 17:55 94 135/83 H 05/21/18 17:50 99.7 F H 90 20 129/78 05/21/18 17:45 99.0 F 99 20 126/83 H 05/21/18 17:41 134/93 H 05/21/18 17:38 101.7 F H 106 H 20 141/76 H 05/21/18 17:26 102.6 F H 84 24 138/81 H 05/21/18 17:20 94 127/88 H 05/21/18 17:16 99.9 F H 82 22 126/84 H 05/21/18 16:55 100.9 F H 77 22 134/80 H 05/21/18 15:52 99.1 F 05/21/18 15:16 98.6 F 77 20 125/80 05/21/18 15:03 98.1 F 73 20 122/74 05/21/18 14:49 98.1 F 73 20 122/74 05/21/18 11:00 97.9 F 85 16 111/58 L Intake & Output: Intake & Output 05/18/18 05/19/18 05/20/18 05/21/18 23:59 23:59 23:59 23:59 Intake Total 2855 653 Output Total 456 850 Balance 5669 -163 - Lab Results Fish Bones: 05/21/18 17:30 Other Labs: Lab Results x24hrs 05/21/18 05/21/18 05/21/18 Range/Units 17:30 07:15 07:15 WBC 18.9 H 16.0 H (4.8-10.8) x10^3/uL RBC 4.54 3.02 L (4.20-5.40) 10^6/uL Hgb 10.7 L 6.6 L* (12.0-16.0) g/dL Hct 33.2 L 20.7 L (37.0-47.0) % MCV 73.1 L 68.7 L (81.0-99.0) fL MCH 23.5 L 22.0 L (27.0-31.0) pg MCHC 32.2 32.0 (32.0-36.0) g/dL RDW 20.8 H 18.4 H (12.0-15.0) % Plt Count 275 242 (130-450) 10^3/uL MPV 8.2 8.4 (7.9-10.8) fL Neut # (Auto) 13.3 H 11.2 H (1.5-6.6) 10^3/uL Lymph # (Auto) 4.8 H 4.0 H (1.5-3.5) 10^3/uL [place] # (Auto) 0.7 0.7 (0.0-1.0) 10^3/uL Eos # (Auto) 0.1 0.0 (0.0-0.7) 10^3/uL Baso # (Auto) 0.0 0.0 (0.0-0.1) 10^3/uL Absolute Nucleated RBC 0.00 0.01 x10^3/uL Nucleated RBC % 0.0 0.0 /100WBC Blood Type Blood Type Recheck O POSITIVE Antibody Screen Crossmatch IS Only 05/20/18 05/20/18 Range/Units 18:58 02:20 WBC 17.6 H (4.8-10.8) x10^3/uL RBC 3.33 L (4.20-5.40) 10^6/uL Hgb 7.2 L (12.0-16.0) g/dL Hct 23.0 L (37.0-47.0) % MCV 69.2 L (81.0-99.0) fL MCH 21.5 L (27.0-31.0) pg MCHC 31.1 L (32.0-36.0) g/dL RDW 18.3 H (12.0-15.0) % Plt Count 246 (130-450) 10^3/uL MPV 8.1 (7.9-10.8) fL Neut # (Auto) 12.4 H (1.5-6.6) 10^3/uL Lymph # (Auto) 4.1 H (1.5-3.5) 10^3/uL [place] # (Auto) 1.0 (0.0-1.0) 10^3/uL Eos # (Auto) 0.0 (0.0-0.7) 10^3/uL Baso # (Auto) 0.0 (0.0-0.1) 10^3/uL Absolute Nucleated RBC 0.00 x10^3/uL Nucleated RBC % 0.0 /100WBC Blood Type O POSITIVE Blood Type Recheck Antibody Screen NEGATIVE Crossmatch IS Only See Detail
[2018-05-21] MEDS ORDERED: IOPAMIDOL-300 100 ML VIAL ONE (19:09)
[2018-05-21] MEDS ORDERED: IOPAMIDOL-300 100 ML VIAL IVP ONE (19:56)
--- NOTE | 2018-05-21 20:35 | CT Report ---
Reason: r/o PE. Pleuritic chest pain. . Procedure Date: 05/21/2018 Accession Number: [id number] / [id number] Procedure: CT - ANGIO CHEST W/WO CPT Code: FULL RESULT: EXAM: CT ANGIOGRAM CHEST EXAM DATE: 05/21/2018 07:53 PM. CLINICAL HISTORY: R/o PE. Pleuritic chest pain. . COMPARISON: None. TECHNIQUE: Routine helical imaging was performed through the chest in the pulmonary arterial phase. IV Contrast: 50 ML ISOVUE 300. Reconstructions: Coronal 3-D MIP reconstructions.Sagittal and coronal. In accordance with CT protocol optimization, one or more of the following dose reduction techniques were utilized for this exam: automated exposure control, adjustment of mA and/or KV based on patient size, or use of iterative reconstructive technique. FINDINGS: Pulmonary Arteries: Diagnostic quality: Adequate through the segmental arteries. No evidence for acute or chronic pulmonary emboli. Heart: Normal size. RV/LV is within normal limits. There is no interventricular septal bowing. There is no reflux of contrast material in the IVC. Lungs/Pleura: No consolidation, nodules, or edema. No effusions or pneumothorax. Mediastinum: Small volume pneumomediastinum. Esophagus nondilated. Lower thyroid gland unremarkable. No lymphadenopathy. Thoracic Aorta: Cardiac motion artifact proximally. Otherwise unremarkable. Upper Abdomen: Small volume extraperitoneal gas posterior to the right hepatic lobe. Approximate 4 cm area of patchy hypodensity in segment 8 of the liver. Other: Small volume emphysema and right greater than left axillae, the right posterior lower thoracic and upper lumbar paraspinal musculature and subcutaneous regions, the lower thoracic and upper lumbar epidural space. Bones are unremarkable. IMPRESSION: 1. No pulmonary embolism. 2. Lungs are clear. 3. Small volume mediastinal, body wall, extraperitoneal, and epidural emphysema as described above, presumably iatrogenic. [facility] ADDENDUM: 05/21/18 20:45 As noted in the findings section, there is a small area of mild patchy hypodensity in the posterior superior aspect of the liver which is of uncertain significance possibly an area of hypoperfusion or patchy fatty infiltration. Correlate with liver function tests. Liver MRI without and with contrast could be used to further assess.
--- NOTE | 2018-05-21 22:00 | PROVIDER PROGRESS NOTE ---
Subjective - Subjective Subjective: Pleuritic chest pain has improved, doesn't feel as "heavy". No chest pain between breaths. No SOB. Bleeding is fine. Feeling fine. AVSS alert, smiling, NAD, holding baby face is full of petechae since delivery Lungs CTA bilaterally EKG overall normal CT without PE but with some diffuse mild free air in mediastinal and other spaces. No hemolysis. Gram stain on blood was negative. A/P: 1) febrile non-hemolytic transfusion reaction: fever has resolved. No hemolysis. Blood gram stain was negative. 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 Doubt ARDS pt lacks respiratory distress, lungs are clear, CTA does not suggest any lung injury. With the free air will do continuous pulse ox tonight while sleeping. Get CXR in am. 3) Anemia is much improved 4) Will repeat US tomorrow to determine if clot has passed or not. 5) otherwise routine care. Objective - Vital Signs/Intake & Output Vital Signs: Vital Signs x48h Temp Pulse Pulse Resp BP BP BP 05/21/18 21:34 98.4 F 71 16 109/58 L 05/21/18 20:56 99.1 F 91 18 112/64 05/21/18 20:30 98.6 F 93 16 112/67 05/21/18 20:26 99.5 F 89 17 115/67 05/21/18 19:30 94 122/67 05/21/18 19:15 99 130/80 05/21/18 19:00 99.1 F 89 20 124/73 05/21/18 18:50 100.9 F H 98 16 122/61 05/21/18 18:25 99.3 F 93 16 133/75 H 05/21/18 18:20 82 130/85 H 05/21/18 18:15 98.8 F 94 16 123/85 H 05/21/18 18:10 99.9 F H 95 18 130/84 H 05/21/18 18:05 100.0 F H 92 20 133/87 H 05/21/18 18:00 99.3 F 93 20 135/83 H 05/21/18 17:55 94 135/83 H 05/21/18 17:50 99.7 F H 90 20 129/78 05/21/18 17:45 99.0 F 99 20 126/83 H 05/21/18 17:41 134/93 H 05/21/18 17:38 101.7 F H 106 H 20 141/76 H 05/21/18 17:26 102.6 F H 84 24 138/81 H 05/21/18 17:20 94 127/88 H 05/21/18 17:16 99.9 F H 82 22 126/84 H 05/21/18 16:55 100.9 F H 77 22 134/80 H 05/21/18 15:52 99.1 F 05/21/18 15:16 98.6 F 77 20 125/80 05/21/18 15:03 98.1 F 73 20 122/74 05/21/18 14:49 98.1 F 73 20 122/74 Pulse Ox 05/21/18 21:34 99 05/21/18 20:56 98 05/21/18 20:30 100 05/21/18 20:26 98 05/21/18 19:30 05/21/18 19:15 05/21/18 19:00 05/21/18 18:50 05/21/18 18:25 05/21/18 18:20 05/21/18 18:15 05/21/18 18:10 05/21/18 18:05 05/21/18 18:00 05/21/18 17:55 05/21/18 17:50 05/21/18 17:45 05/21/18 17:41 05/21/18 17:38 05/21/18 17:26 05/21/18 17:20 05/21/18 17:16 05/21/18 16:55 05/21/18 15:52 05/21/18 15:16 05/21/18 15:03 05/21/18 14:49 Intake & Output: Intake & Output 05/18/18 05/19/18 05/20/18 05/21/18 23:59 23:59 23:59 23:59 Intake Total 2855 653 Output Total 055 1225 Balance 8530 -890 - Lab Results Fish Bones: 05/21/18 17:30 Other Labs: Lab Results x24hrs 05/21/18 05/21/18 05/21/18 Range/Units 17:30 07:15 07:15 WBC 18.9 H 16.0 H (4.8-10.8) x10^3/uL RBC 4.54 3.02 L (4.20-5.40) 10^6/uL Hgb 10.7 L 6.6 L* (12.0-16.0) g/dL Hct 33.2 L 20.7 L (37.0-47.0) % MCV 73.1 L 68.7 L (81.0-99.0) fL MCH 23.5 L 22.0 L (27.0-31.0) pg MCHC 32.2 32.0 (32.0-36.0) g/dL RDW 20.8 H 18.4 H (12.0-15.0) % Plt Count 275 242 (130-450) 10^3/uL MPV 8.2 8.4 (7.9-10.8) fL Neut # (Auto) 13.3 H 11.2 H (1.5-6.6) 10^3/uL Lymph # (Auto) 4.8 H 4.0 H (1.5-3.5) 10^3/uL [place] # (Auto) 0.7 0.7 (0.0-1.0) 10^3/uL Eos # (Auto) 0.1 0.0 (0.0-0.7) 10^3/uL Baso # (Auto) 0.0 0.0 (0.0-0.1) 10^3/uL Absolute Nucleated RBC 0.00 0.01 x10^3/uL Nucleated RBC % 0.0 0.0 /100WBC Blood Type Blood Type Recheck O POSITIVE Antibody Screen Crossmatch IS Only 05/20/18 Range/Units 02:20 WBC (4.8-10.8) x10^3/uL RBC (4.20-5.40) 10^6/uL Hgb (12.0-16.0) g/dL Hct (37.0-47.0) % MCV (81.0-99.0) fL MCH (27.0-31.0) pg MCHC (32.0-36.0) g/dL RDW (12.0-15.0) % Plt Count (130-450) 10^3/uL MPV (7.9-10.8) fL Neut # (Auto) (1.5-6.6) 10^3/uL Lymph # (Auto) (1.5-3.5) 10^3/uL [place] # (Auto) (0.0-1.0) 10^3/uL Eos # (Auto) (0.0-0.7) 10^3/uL Baso # (Auto) (0.0-0.1) 10^3/uL Absolute Nucleated RBC x10^3/uL Nucleated RBC % /100WBC Blood Type O POSITIVE Blood Type Recheck Antibody Screen NEGATIVE Crossmatch IS Only See Detail
[2018-05-22] MEDS: IBUPROFEN 800 MG TABLET PO SCH ×3 (00:19→18:32)
[2018-05-22] MEDS: METHYLERGONOVINE 0.2 MG/ML AMP PO SCH (01:29)
[2018-05-22] MEDS ORDERED: CHERRY SYRUP 10 ML UDC PO ONE (01:30)
[2018-05-22] MEDS: ACETAMINOPHEN 500 MG TABLET PO SCH ×3 (01:32→21:19)
[2018-05-22] MEDS ORDERED: MORPHINE 2 MG/ML CARPUJECT IVP PRN (03:25)
--- NOTE | 2018-05-22 03:28 | XRAY Report ---
Reason: pain Procedure Date: 05/22/2018 Accession Number: [id number] / [id number] Procedure: XR - Chest 2 View X-Ray CPT Code: 35611 FULL RESULT: EXAM: CHEST RADIOGRAPHY EXAM DATE: 05/22/2018 03:00 AM. CLINICAL HISTORY: Chest pain and shortness of breath. . COMPARISON: None. TECHNIQUE: 2 views. FINDINGS: Lungs/Pleura: No alveolar consolidation or pleural effusion seen. No pneumothorax. Mediastinum: Heart size upper normal. Other: None. IMPRESSION: 1. No acute abnormality seen in the chest. RADIA
[2018-05-22] MEDS ORDERED: oxyCODONE 5 MG TABLET PO PRN ×2 (03:33→11:15)
--- NOTE | 2018-05-22 03:57 | PROVIDER PROGRESS NOTE ---
Subjective - Subjective Subjective: Was feeling OK and slept for about an hour. Woke up hurting all over including her back and chest. Hurts in arms and legs and everywhere. No shortness of breath. No increase in bleeding. 36.9 101/61 HR 57 RR 12 99%RA Pt resting in bed on her side, appears comfortable physically, moans from time to time. Easy to rouse, normal speech. Able to reposition in bed without pain flare. Cor RRR no murmurs Lungs CTA bilaterally with good excursion. Abd soft, diffusely mildly tender, no guarding. Fundus firm, nontender, at umbilicus No crepitis when palpating over chest, axilla, or back. Epidural site without erythema, warmth, or tenderness. Bedside US with ongoing retained clot vs. products of conception measuring 3.4 x 2.6 x 1.7 cm without color flow. A/P: 1) 05/21/2018 febrile non-hemolytic transfusion reaction: fever has resolved. No hemolysis. Blood gram stain was negative. Doubt any ongoing problems due to this. 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 Doubt ARDS pt lacks respiratory distress, lungs are clear, CTA does not suggest any lung injury. Vitals have remained stable since the onset of her intermittent chest pain 11h ago. Stat CXR just now was normal so doubt any ongoing extending process. 3) Anemia is improved by last CBC 4) retained POC, no evidence of infection, will go to OR in the morning for D&C. Will stop methergine. Objective - Vital Signs/Intake & Output Vital Signs: Vital Signs x48h Temp Pulse Resp BP BP Pulse Ox 05/22/18 02:47 98.1 F 61 16 110/77 100 05/22/18 01:34 97.9 F 56 L 16 103/57 L 100 05/22/18 00:33 97.9 F 58 L 16 102/57 L 99 05/21/18 23:30 98.4 F 70 16 104/66 98 05/21/18 22:20 98.4 F 88 18 115/64 87 L 05/21/18 21:34 98.4 F 71 16 109/58 L 99 05/21/18 20:56 99.1 F 91 18 112/64 98 05/21/18 20:30 98.6 F 93 16 112/67 100 05/21/18 20:26 99.5 F 89 17 115/67 98 Intake & Output: Intake & Output 05/19/18 05/20/18 05/21/18 05/22/18 23:59 23:59 23:59 23:59 Intake Total 2855 653 Output Total 475 1600 600 Balance 9413 -881 -600 - Lab Results Fish Bones: 05/21/18 17:30 Other Labs: Lab Results x24hrs 05/21/18 05/21/18 05/21/18 Range/Units 17:30 07:15 07:15 WBC 18.9 H 16.0 H (4.8-10.8) x10^3/uL RBC 4.54 3.02 L (4.20-5.40) 10^6/uL Hgb 10.7 L 6.6 L* (12.0-16.0) g/dL Hct 33.2 L 20.7 L (37.0-47.0) % MCV 73.1 L 68.7 L (81.0-99.0) fL MCH 23.5 L 22.0 L (27.0-31.0) pg MCHC 32.2 32.0 (32.0-36.0) g/dL RDW 20.8 H 18.4 H (12.0-15.0) % Plt Count 275 242 (130-450) 10^3/uL MPV 8.2 8.4 (7.9-10.8) fL Neut # (Auto) 13.3 H 11.2 H (1.5-6.6) 10^3/uL Lymph # (Auto) 4.8 H 4.0 H (1.5-3.5) 10^3/uL [place] # (Auto) 0.7 0.7 (0.0-1.0) 10^3/uL Eos # (Auto) 0.1 0.0 (0.0-0.7) 10^3/uL Baso # (Auto) 0.0 0.0 (0.0-0.1) 10^3/uL Absolute Nucleated RBC 0.00 0.01 x10^3/uL Nucleated RBC % 0.0 0.0 /100WBC Blood Type Blood Type Recheck O POSITIVE Antibody Screen Crossmatch IS Only 03/07/19 Range/Units 02:20 WBC (4.8-10.8) x10^3/uL RBC (4.20-5.40) 10^6/uL Hgb (12.0-16.0) g/dL Hct (37.0-47.0) % MCV (81.0-99.0) fL MCH (27.0-31.0) pg MCHC (32.0-36.0) g/dL RDW (12.0-15.0) % Plt Count (130-450) 10^3/uL MPV (7.9-10.8) fL Neut # (Auto) (1.5-6.6) 10^3/uL Lymph # (Auto) (1.5-3.5) 10^3/uL [place] # (Auto) (0.0-1.0) 10^3/uL Eos # (Auto) (0.0-0.7) 10^3/uL Baso # (Auto) (0.0-0.1) 10^3/uL Absolute Nucleated RBC x10^3/uL Nucleated RBC % /100WBC Blood Type O POSITIVE Blood Type Recheck Antibody Screen NEGATIVE Crossmatch IS Only See Detail
[2018-05-22] MEDS ORDERED: ACETAMINOPHEN 1,000 MG/100 ML 100 ML IV PRN (04:21)
--- NOTE | 2018-05-22 04:23 | PROVIDER PROGRESS NOTE ---
Subjective - Subjective Subjective: Pt consented for D&C. Procedure described. Indication is for retained clot vs. products of conception in the uterus failing medical management. No good alternatives. Risks bleeding, infection, trauma to local organs, anesthesia complications, failure to cure. No questions. Consent signed. NPO. Objective - Vital Signs/Intake & Output Vital Signs: Vital Signs x48h Temp Pulse Resp BP BP Pulse Ox 05/22/18 03:50 98.4 F 57 L 12 101/61 99 05/22/18 02:47 98.1 F 61 16 110/77 100 05/22/18 01:34 97.9 F 56 L 16 103/57 L 100 05/22/18 00:33 97.9 F 58 L 16 102/57 L 99 05/21/18 23:30 98.4 F 70 16 104/66 98 05/21/18 22:20 98.4 F 88 18 115/64 87 L 05/21/18 21:34 98.4 F 71 16 109/58 L 99 05/21/18 20:56 99.1 F 91 18 112/64 98 05/21/18 20:30 98.6 F 93 16 112/67 100 05/21/18 20:26 99.5 F 89 17 115/67 98 Intake & Output: Intake & Output 05/19/18 05/20/18 05/21/18 05/22/18 23:59 23:59 23:59 23:59 Intake Total 2855 653 Output Total 475 1600 1200 Balance 3517 -819 -1200 - Lab Results Fish Bones: 05/21/18 17:30 Other Labs: Lab Results x24hrs 05/21/18 05/21/18 05/21/18 Range/Units 17:30 07:15 07:15 WBC 18.9 H 16.0 H (4.8-10.8) x10^3/uL RBC 4.54 3.02 L (4.20-5.40) 10^6/uL Hgb 10.7 L 6.6 L* (12.0-16.0) g/dL Hct 33.2 L 20.7 L (37.0-47.0) % MCV 73.1 L 68.7 L (81.0-99.0) fL MCH 23.5 L 22.0 L (27.0-31.0) pg MCHC 32.2 32.0 (32.0-36.0) g/dL RDW 20.8 H 18.4 H (12.0-15.0) % Plt Count 275 242 (130-450) 10^3/uL MPV 8.2 8.4 (7.9-10.8) fL Neut # (Auto) 13.3 H 11.2 H (1.5-6.6) 10^3/uL Lymph # (Auto) 4.8 H 4.0 H (1.5-3.5) 10^3/uL [place] # (Auto) 0.7 0.7 (0.0-1.0) 10^3/uL Eos # (Auto) 0.1 0.0 (0.0-0.7) 10^3/uL Baso # (Auto) 0.0 0.0 (0.0-0.1) 10^3/uL Absolute Nucleated RBC 0.00 0.01 x10^3/uL Nucleated RBC % 0.0 0.0 /100WBC Blood Type Blood Type Recheck O POSITIVE Antibody Screen Crossmatch IS Only 05/20/18 Range/Units 02:20 WBC (4.8-10.8) x10^3/uL RBC (4.20-5.40) 10^6/uL Hgb (12.0-16.0) g/dL Hct (37.0-47.0) % MCV (81.0-99.0) fL MCH (27.0-31.0) pg MCHC (32.0-36.0) g/dL RDW (12.0-15.0) % Plt Count (130-450) 10^3/uL MPV (7.9-10.8) fL Neut # (Auto) (1.5-6.6) 10^3/uL Lymph # (Auto) (1.5-3.5) 10^3/uL [place] # (Auto) (0.0-1.0) 10^3/uL Eos # (Auto) (0.0-0.7) 10^3/uL Baso # (Auto) (0.0-0.1) 10^3/uL Absolute Nucleated RBC x10^3/uL Nucleated RBC % /100WBC Blood Type O POSITIVE Blood Type Recheck Antibody Screen NEGATIVE Crossmatch IS Only See Detail
[2018-05-22] MEDS: MORPHINE 2 MG/ML CARPUJECT IVP PRN ×2 (04:36→06:59)
[2018-05-22] MEDS: SODIUM CHLORIDE FLUSH 0.9% 10 ML SYRINGE IVP SCH (04:36)
[2018-05-22] MEDS ORDERED: SODIUM CHLORIDE FLUSH 0.9% 10 ML SYRINGE ONE ×2 (04:39→06:57)
[2018-05-22] MEDS ORDERED: SODIUM CHLORIDE 0.9% 1,000 ML IV PRN ×2 (05:00→11:27)
[2018-05-22] MEDS ORDERED: KETOROLAC 30 MG/ML VIAL IVP PRN (06:00)
--- NOTE | 2018-05-22 08:53 | ANESTHESIA ---
Pre-Anesthesia VS, & Labs - Diagnosis bleeding, retained clot vs placenta - Procedure D & C Vital Signs: Temp Pulse Resp BP Pulse Ox 36.5 C 63 16 114/82 H 100 05/22/18 06:57 05/22/18 06:57 05/22/18 06:57 05/22/18 06:57 05/22/18 06:57 Height 4 ft 10.5 in Weight (kg) 61.87 kg Body Mass Index 24.0 - NPO >8 hours - Is Patient ?: No, Not Applicable - Lab Results Current Lab Results: Laboratory Tests 05/21/18 17:30: WBC 18.9 H, RBC 4.54, Hgb 10.7 L, Hct 33.2 L, MCV 73.1 L, MCH 23.5 L, MCHC 32.2, RDW 20.8 H, Plt Count 275, MPV 8.2, Neut # (Auto) 13.3 H, Lymph # (Auto) 4.8 H, Gove # (Auto) 0.7, Eos # (Auto) 0.1, Baso # (Auto) 0.0, Absolute Nucleated RBC 0.00, Nucleated RBC % 0.0 05/21/18 07:15: Blood Type Recheck O POSITIVE 05/21/18 07:15: WBC 16.0 H, RBC 3.02 L, Hgb 6.6 L*, Hct 20.7 L, MCV 68.7 L, MCH 22.0 L, MCHC 32.0, RDW 18.4 H, Plt Count 242, MPV 8.4, Neut # (Auto) 11.2 H, Lymph # (Auto) 4.0 H, Gove # (Auto) 0.7, Eos # (Auto) 0.0, Baso # (Auto) 0.0, Absolute Nucleated RBC 0.01, Nucleated RBC % 0.0 05/20/18 18:58: WBC 17.6 H, RBC 3.33 L, Hgb 7.2 L, Hct 23.0 L, MCV 69.2 L, MCH 21.5 L, MCHC 31.1 L, RDW 18.3 H, Plt Count 246, MPV 8.1, Neut # (Auto) 12.4 H, Lymph # (Auto) 4.1 H, Gove # (Auto) 1.0, Eos # (Auto) 0.0, Baso # (Auto) 0.0, Absolute Nucleated RBC 0.00, Nucleated RBC % 0.0 05/20/18 02:20: Blood Type O POSITIVE, Antibody Screen NEGATIVE, Crossmatch IS Only See Detail 05/20/18 02:20: WBC 13.0 H, RBC 4.23, Hgb 9.3 L, Hct 28.9 L, MCV 68.3 L, MCH 21.9 L, MCHC 32.1, RDW 17.9 H, Plt Count 302, MPV 8.6, Neut # (Auto) 7.7 H, Lymph # (Auto) 4.5 H, Gove # (Auto) 0.7, Eos # (Auto) 0.1, Baso # (Auto) 0.0, Absolute Nucleated RBC 0.00, Nucleated RBC % 0.0, Manual Slide Review Indicated, Platelet Estimate NORMAL (130-450,000), RBC Morph Micro Appear 1+ POLYCHROMASIA Fish Bones: 05/21/18 17:30 Home Medications and Allergies Active Medications Acetaminophen (Ofirmev) 100 mls @ 400 mls/hr IV Q6HR PRN PRN Reason: PAIN Last Infusion: 05/22/18 07:30 Dose: Infused Sodium Chloride (Normal Saline 0.9%) 1,000 mls @ 125 mls/hr IV .Q8H PRN PRN Reason: START PRN THIRST WHILE NPO Ketorolac Tromethamine (Toradol Inj (30mg)) 30 mg IVP Q6HR PRN PRN Reason: PAIN Stop: 05/27/18 05:59 Last Admin: 05/22/18 06:59 Dose: 30 mg Morphine Sulfate (Morphine (Carpuject)) 2 mg IVP Q1H PRN PRN Reason: PAIN Last Admin: 05/22/18 06:59 Dose: 2 mg Prenatl Vit6/Iron/FA/B12/Ca/D3 [Mteryti Combo Pack] 1 tab PO DAILY 01/20/18 Allergies/Adverse Reactions: Allergies Allergy/AdvReac Type Severity Reaction Status Date / Time No Known Drug Allergies Allergy Verified 01/20/18 17:31 Anes History & Medical History - Anesthetic History Anesthesia Complications: reports: No previous complications - Medical History Cardiovascular: reports: None Pulmonary: reports: Other (had some subcutaneous emphysema after pushing during labor, also developed mild hemolytic blood transfusion reaction post , chest CT and angio's negative for PE.) Gastrointestinal: reports: None Urinary: reports: None Smoking Status: Never smoker - Obstetrical History : 1 Parity: 0 Events: positive: None Complications: positive: None Exam General: Alert Dental: WNL Mouth Opening: Greater than 4 Fingerbreadths Neck Mobility: Normal Mallampati classification: I Respiratory: Lungs clear Cardiovascular: Regular rate, Normal S1, Normal S2 Mental/Cognitive Status: Alert/Oriented X3 Plan Anesthesia Type: General, MAC Consent for Procedure(s) Verified and Reviewed: Yes Code Status: Attempt Resuscitation ASA classification: 2-Mild systemic disease Is this case an emergency?: No
--- NOTE | 2018-05-22 09:01 | PROVIDER PROGRESS NOTE ---
Subjective - Subjective Subjective: S: same pain all over the body, c/o 5/10 pain gets morphine sleeps--and when awakened and sedated she complains that the morphine didn't help at all. Nothing new in terms of bleeding, breasts, or urination. O: AVSS Alert, pumping, sitting up in bed, appears comfortable Abd soft, nt/nd Fundus firm, NT, 2cm below U A/P: to OR now for D&C for retained POC. Will do brief US now. Objective - Vital Signs/Intake & Output Vital Signs: Vital Signs x48h Temp Pulse Resp BP BP Pulse Ox 05/22/18 06:57 97.7 F 63 16 114/82 H 100 05/22/18 03:50 98.4 F 57 L 12 101/61 99 05/22/18 02:47 98.1 F 61 16 110/77 100 05/22/18 01:34 97.9 F 56 L 16 103/57 L 100 Intake & Output: Intake & Output 05/19/18 05/20/18 05/21/18 05/22/18 23:59 23:59 23:59 23:59 Intake Total 2855 653 100 Output Total 475 1600 1200 Balance 2380 -947 -1100 - Lab Results Fish Bones: 05/21/18 17:30 Other Labs: Lab Results x24hrs 05/21/18 05/21/18 05/20/18 Range/Units 17:30 07:15 02:20 WBC 18.9 H (4.8-10.8) x10^3/uL RBC 4.54 (4.20-5.40) 10^6/uL Hgb 10.7 L (12.0-16.0) g/dL Hct 33.2 L (37.0-47.0) % MCV 73.1 L (81.0-99.0) fL MCH 23.5 L (27.0-31.0) pg MCHC 32.2 (32.0-36.0) g/dL RDW 20.8 H (12.0-15.0) % Plt Count 275 (130-450) 10^3/uL MPV 8.2 (7.9-10.8) fL Neut # (Auto) 13.3 H (1.5-6.6) 10^3/uL Lymph # (Auto) 4.8 H (1.5-3.5) 10^3/uL [place]cher # (Auto) 0.7 (0.0-1.0) 10^3/uL Eos # (Auto) 0.1 (0.0-0.7) 10^3/uL Baso # (Auto) 0.0 (0.0-0.1) 10^3/uL Absolute Nucleated RBC 0.00 x10^3/uL Nucleated RBC % 0.0 /100WBC Blood Type O POSITIVE Blood Type Recheck O POSITIVE Antibody Screen NEGATIVE Crossmatch IS Only See Detail
[2018-05-22] MEDS ORDERED: SODIUM CHLORIDE 0.9% 500 ML IV ONE (09:10)
--- NOTE | 2018-05-22 09:52 | OPERATIVE REPORT ---
Operative Report - General Admit Date: 05/20/18 Procedure Date: 05/22/18 Planned Procedure: Dilation and curettage Pre-Op Diagnosis: Intrauterine debris persistent 2 days Procedure Performed: Dilation and curettage Post Op Diagnosis: Retained uterine debris - Procedure Note Primary Surgeon: Mari Caldera Secondary Surgeon: Lidia Anesthesia Technique: MAC Pathology: Uterine contents IV Fluids (mL): 400 Estimated Blood Loss (mL): 100 Urine Output (mL): 0 (Not drained. Not full by US. ) Findings: Retained uterine contents by bedside ultrasound immediately preoperatively. Empty uterus by US at the end of the procedure. Complications: none - Other Other Information/Narrative: Counts correct x1 Disposition PACU Prophylaxis: SCD to lower extremity. No antibiotics indicated.
[2018-05-22] MEDS ORDERED: SODIUM CHLORIDE FLUSH 0.9% 10 ML SYRINGE IVP PRN (09:53)
[2018-05-22] MEDS ORDERED: ONDANSETRON 4 MG/2 ML VIAL IVP PRN (09:53)
[2018-05-22] MEDS ORDERED: LACTATED RINGERS 1,000 ML IV SCH (10:00)
[2018-05-22] MEDS ORDERED: KETAMINE 500 MG/10 ML VIAL IVP ONE (10:01)
[2018-05-22] MEDS ORDERED: fentaNYL 100 MCG/2 ML VIAL IVP ONE (10:01)
[2018-05-22] MEDS ORDERED: MIDAZOLAM 2 MG/2 ML VIAL IVP ONE (10:01)
[2018-05-22] MEDS ORDERED: PROPOFOL 200 MG/20 ML VIAL IVP ONE (10:01)
[2018-05-22] MEDS ORDERED: LIDOCAINE-MPF 2% 5 ML VIAL IM ONE (10:01)
[2018-05-22] MEDS ORDERED: WITCH HAZEL/GLYCERIN 1 EACH MED..PAD TOP PRN (11:28)
[2018-05-22] MEDS ORDERED: diphenhydrAMINE INJ 50 MG/ML VIAL IVP PRN (11:30)
[2018-05-22] MEDS ORDERED: diphenhydrAMINE 25 MG CAPSULE PO PRN (11:30)
[2018-05-22] MEDS ORDERED: HYDROCORTISONE 1% CREAM 28 GM TUBE PR PRN (11:31)
[2018-05-22] MEDS ORDERED: SIMETHICONE CHEW 80 MG TABLET PO SCH (14:00)
[2018-05-22] MEDS ORDERED: SODIUM CHLORIDE FLUSH 0.9% 10 ML SYRINGE IVP SCH (17:00)
--- NOTE | 2018-05-22 18:14 | OPERATIVE REPORT ---
DATE OF SERVICE: 05/22/2018 Physician: Mari Caldera MD PREOPERATIVE DIAGNOSIS: Retained uterine debris post-delivery. POSTOPERATIVE DIAGNOSES: Retained uterine debris post-delivery. PROCEDURE PERFORMED: Dilation and curettage of the uterus. SURGEON: Mari Caldera MD SENIOR ACCOUNTING CLERK: None. ANESTHESIA: MAC. ESTIMATED BLOOD LOSS: 100 mL IV FLUIDS: 400 mL URINE OUTPUT: None - not catheterized. COUNTS: Correct x2. COMPLICATIONS: None apparent. DISPOSITION: Stable to the operating room. PROPHYLAXIS: SCDs to the bilateral lower extremities. No antibiotics indicated. FINDINGS: The patient had a retained clot versus placenta persistent in the lower uterine segment, f ailing medical management. She had retention of this debris immediately prior to surgery. By the en d of surgery, the debris was gone by ultrasound. DESCRIPTION OF PROCEDURE: The patient was brought to the operating room and underwent IV sedation. She was placed in low lithotomy in [facility]. She was prepped and draped in the usual steril e fashion. A speculum was placed and a ring forceps was applied to the anterior lip of the cervix. The cervix was already dilated to about 16 mm. A ring forceps was inserted into the upper cervix and lower uterus to extract the retained debris. It did appear to be a blood clot. No placental or mem branous parts were identified. I did two passes with a size 14 curved curette under very mild suctio n under 30 mmHg. Ultrasound revealed what appeared to be an empty uterus, but also there was some hy perechoic areas in the lower uterine segment that could represent more products. A gentle pass with a sharp curette was made. A 7 mm flexible suction curette was used to gently remove the remaining ti ssue. After this, ultrasound revealed no hyperechoic areas. The ring forceps was removed from her c ervix. Uterine massage was performed. The patient had a normal amount of bleeding that then tapered off over the next 5 minutes. All instruments were removed. The Betadine was washed from her body. She was awakened in the supine position. TD: 05/22/2018 10:08
[2018-05-22] MEDS: DOCUSATE SODIUM 100 MG CAPSULE PO SCH (21:20)
[2018-05-23] MEDS: IBUPROFEN 800 MG TABLET PO SCH ×2 (00:43→08:38)
[2018-05-23] MEDS: ACETAMINOPHEN 500 MG TABLET PO SCH (06:14)
--- NOTE | 2018-05-23 08:14 | Discharge Plan ---
Discharge Plan Disposition: 01 Home, Self Care Condition: Good Diet: Regular Activity Restrictions: routine Shower Restrictions: No Driving Restrictions: No No Smoking: If you smoke, Please STOP! Call for help. Follow-up with: Mari Caldera MD [Provider Admit Priv/Credential] -
--- NOTE | 2018-05-23 08:19 | PROVIDER PROGRESS NOTE ---
Subjective - Subjective Subjective: meets discharge critera, doing very well. See discharge summary. Objective - Vital Signs/Intake & Output Vital Signs: Vital Signs x48h Temp Pulse Resp BP BP Pulse Ox 05/23/18 07:31 98.2 F 72 18 108/72 100 05/23/18 06:18 97.9 F 69 18 102/70 100 05/23/18 00:38 97.7 F 63 20 99/53 L 99 Intake & Output: Intake & Output 05/20/18 05/21/18 05/22/18 05/24/18 23:59 23:59 23:59 00:59 Intake Total 2855 653 845 150 Output Total 475 1600 2450 Balance 1958 -648 -1517 150 - Lab Results Fish Bones: 05/21/18 17:30
[2018-05-23] MEDS: DOCUSATE SODIUM 100 MG CAPSULE PO SCH (08:38)
[2018-05-23 08:56] VITALS: BP 111/71
--- NOTE | 2018-05-23 12:53 | Labor Flowsheet ---
Labor Flowsheet Datetime Report Generated by CPN: 05/23/2018 12:53 Datetime: 05/23/2018 08:05 VITAL SIGNS NBP Sys/Slime/Mean (mmHg): 111 : 71 : 80 Pulse: 63 LaborFlag: Labor Datetime: 05/22/2018 11:25 SpO2 (%): 99 Datetime: 05/20/2018 09:16 Stage 2 Comments: 250 mls blood loss Datetime: 05/20/2018 09:09 UTERINE ACTIVITY Monitor Mode: External Frequency (min): 1.5-2 Quality: Strong Duration (sec): 60-90 Resting Tone (Palpate): Relaxed ASSESSMENT A Monitor Mode: External US Monitor Interventions for FHR: Ultrasound Adjusted FHR Baseline Rate : 135 Variability: Moderate 6-25 bpm Accelerations: 15X15 Decelerations: Variable Category: Category II Comments: PATIENT CARE Oxygen Method: Room Air Datetime: 05/20/2018 09:01 Pushing Position: Pushing with Contractions Pushing Progress: Perineal Bulging; Presenting Part Visible; Pushing Effectively with Contractions Datetime: 05/20/2018 09:00 Monitor Interventions for UA: [place] Adjusted Patient Position/Activity: Low Fowlers Datetime: 05/20/2018 08:21 Membranes Ruptured Date/Time: 05/20/2018 07:16 Datetime: 05/20/2018 08:15 COMMUNICATION Communication: RN at Bedside; Provider at Bedside Datetime: 05/20/2018 08:09 VAGINAL EXAM Dilatation (cm): 10.0 STAGE 2 Pushing: Urge to Push Datetime: 05/20/2018 08:05 Contraction Comments: Going to push to see if anterior lip will resolve Datetime: 05/20/2018 07:35 Respirations: 20 Temperature (C): 36.8 Datetime: 05/20/2018 07:16 Membrane Status: Ruptured Membranes Rupture Method: Spontaneous Amniotic Fluid Color: Heavy Meconium Amniotic Fluid Amount: Small Amniotic Fluid Odor: Normal Membrane Comments: srom during SVE, thick mec Datetime: 05/20/2018 06:50 Temperature Route: Oral Datetime: 05/20/2018 06:44 Pain Presence: Intermittent Pain Type: Contraction; Pressure Pain Location: Abdomen; Back Pain Relief Measures: Anesthesia assessing pt. Pt crying with contractions. Datetime: 05/20/2018 06:43 I/O Interventions: Richards Cath Inserted (Annotations: 50 cc's returned. Per pt, she voided on pad j ust prior to insertion.) Datetime: 05/20/2018 06:32 Anesthesia Comments: fentanyl added to epidural by anesthesia Datetime: 05/20/2018 06:22 Pain Assessment Comments: Anesthesia back in to see pt, getting more uncomfortable. Datetime: 05/20/2018 06:00 PAIN Pain Scale: 5 (Annotations: pt dozing off.) Datetime: 05/20/2018 05:56 Effacement (%): 90 Station: 1 Exam by: Henry Lomas CNM Vaginal Bleeding: Normal Show Cervix, Position: Anterior Datetime: 05/20/2018 05:42 Epidural Positioning: Side Lying Epidural Procedure: Completed Datetime: 05/20/2018 05:41 Comfort Measures: Breathing/Relaxation Datetime: 05/20/2018 05:32 ANESTHESIA Anesthesia Plans: Local Datetime: 05/20/2018 05:16 MEDICATIONS Analgesics/Sedatives: Fentanyl (mcg) @ 100 Datetime: 05/20/2018 05:00 Patient Care Comments: voided Datetime: 05/20/2018 04:59 Medication Comments: nitrous oxide Datetime: 05/20/2018 03:47 PROCEDURE TIME OUT Procedure Verify: Correct Patient Identity Datetime: 05/20/2018 03:00 Pattern: Normal: <= 5 Contractions in 10 Minutes Datetime: 05/20/2018 02:45 Antibiotics: Penicillin IV (Units) @ 5,000,000
--- NOTE | 2018-05-23 17:02 | DISCHARGE SUMMARY ---
Physician: Mari Caldera MD DATE OF ADMISSION: 05/20/2018 DATE OF DISCHARGE: 05/23/2018 OPERATIONS AND PROCEDURES 1. On 05/20/2018, spontaneous vaginal delivery of a live born male. Estimated blood loss was 250 mL. Patient was delivered at 40 weeks 3 days. 2. Dilation and curettage on 05/22/2018 for retained uterine debris. ADMISSION DIAGNOSES 1. Spontaneous labor at 40 weeks 3 days. 2. Chronic anemia. DISCHARGE DIAGNOSES 1. Status post spontaneous delivery at term. 2. Chronic and acute blood loss anemia. 3. Nonhemolytic febrile transfusion reaction. 4. Retained uterine debris. 5. Yvan syndrome. HOSPITAL COURSE: Patient was admitted in spontaneous labor. She had been chronically anemic and was on iron as an antepartum patient. She had an uncomplicated delivery. The following day a routine blood count was performed revealing a hemoglobin of 6.6. Patient was feeling weak, but no other anemia symptoms were present. However, the patient had an abnormal amount of vaginal bleeding reflecting ongoing blood loss. Care was transferred from midwifery to physician care. Ultrasound was performed, and the patient did have some retained uterine debris. Patient was given tranexamic acid to slow her bleeding down. She was given Methergine and misoprostol to try to help her pass the debris. She was also consented for blood transfusion due to her profound anemia, combined with ongoing blood loss. An ultrasound was performed, and there was no abnormal color flow to the retained debris, reflecting that probably there was no adherent placenta left. The patient's IV became nonfunctioning between the first and second units of blood. There is about a 6-hour gap between the start of the first and the start of the second. The patient had been premedicated with Benadryl and Tylenol before the first unit but was not premedicated prior to the second. About third of the way into her second unit, the patient complained of feeling warm. The patient's fever increased. The transfusion was immediately discontinued, and the blood bank was involved with evaluating her transfusion reaction. No hemolysis was seen, and proper matching was verified. The donors blood was negative for Gram stain and never grew out any bacteria. A few hours after the transfusion was stopped, the patient began complaining of significant pleuritic chest pain. She went to CT scan to rule out pulmonary embolism. She did not have a PE, nor did she have any evidence of ARDS following her transfusion reaction. However, the CT did reveal free air in her epidural space, as well as a small volume of emphysema in the mediastinum body wall extraperitoneal area and epidural space. The patient had no crepitus. She was not in any respiratory distress. An EKG was normal. Her vitals remained normal throughout this entire process. 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 The patient's valsalva power was evidenced by her widespread facial petichia seen immediately after delivery. [facility] at [facility] was consulted, and they did not have any further recommendations other than supportive care. The patient remained very stable with her vital signs. Eventually her chest pain did improve. The patient's retained uterine debris failed to be expelled with medical management. She never had any evidence of infection in this area; her temperature remained normal after her transfusion reaction. She was not tachycardic, and she did not have any increasing uterine pain. This is why the D and C was delayed, waiting for medical management to work. The following day the debris remained, and the decision was made to proceed to the OR for dilation and curettage. The procedure was uncomplicated, and it appeared to be only clot that came out. Following the D and C, the patient did very well. She was eating, ambulating, and urinating without difficulties. She was tired, but her mood was good. Her was excellent with a great latch. She was not complaining of any new symptoms. DISCHARGE EXAMINATION: Afebrile, normal vital signs. The patient is sleepy, but in no apparent distress. Abdomen soft, nontender, nondistended. Fundus firm, nontender, and 1 cm above the umbilicus. The patient's bladder was full, and she was hunched in bed. There was no lower extremity edema. No calf tenderness or warmth. Post-transfusion hematocrit was 33.2, hemoglobin 10.7. DISCHARGE PRECAUTIONS: Routine precautions given. Patient is to immediately return as well p.r.n. any heavy bleeding, headaches, faintness, or feeling otherwise poorly. DISCHARGE DISPOSITION: Home. CONDITION: Good. FOLLOWUP: One week with either myself or Natalie Lomas CNM. DISCHARGE MEDICATIONS 1. Continue vitamins and iron. 2. Ibuprofen p.r.n. pain. 3. Colace p.r.n. to soften stool. TD: 05/23/2018 08:44 MTDD
== END 2018-05-23 12:52 | disposition home or self-care (01) | DRG 797 ==
LOC: WFO 23:54 → FBP 23:56 → WFO 05-20 01:29 → FBP 05-20 01:30
PROVIDERS: ADMIT Nurse Practitioner Obstetrics & Gynecology; ATTEND Obstetrics & Gynecology
PROC: 10E0XZZ Delivery of Products of Conception, External Approach (ICD-10-PCS; principal; 2018-05-20)
PROC: 0HQ9XZZ Repair Perineum Skin, External Approach (ICD-10-PCS; 2018-05-20)
PROC: 30233N1 Transfusion of Nonautologous Red Blood Cells into Peripheral Vein, Percutaneous Approach (ICD-10-PCS; 2018-05-21)
PROC: 10D17ZZ Extraction of Products of Conception, Retained, Via Natural or Artificial Opening (ICD-10-PCS; 2018-05-22)
DX: O99.02 Anemia complicating childbirth (principal); J98.19 Other pulmonary collapse; Z37.0 Single live birth; O72.2 Delayed and secondary postpartum hemorrhage; D62 Acute posthemorrhagic anemia; O99.03 Anemia complicating the puerperium; O32.2XX0 Maternal care for transverse and oblique lie, not applicable or unspecified; O99.820 Streptococcus B carrier state complicating pregnancy; D50.0 Iron deficiency anemia secondary to blood loss (chronic); O75.89 Other specified complications of labor and delivery; K21.9 Gastro-esophageal reflux disease without esophagitis; O77.0 Labor and delivery complicated by meconium in amniotic fluid; O69.81X0 Labor and delivery complicated by cord around neck, without compression, not applicable or unspecified; O70.0 First degree perineal laceration during delivery; O90.89 Other complications of the puerperium, not elsewhere classified; R50.84 Febrile nonhemolytic transfusion reaction; Z3A.40 40 weeks gestation of pregnancy; Z86.59 Personal history of other mental and behavioral disorders
CPT/HCPCS: 36415; 71046; 71275; 76856; 85025; 86850; 86900; 86901; 86920; 87040; 87205; 93005; 99212; A9270; J0131; J1200; J1756; J7120; P9016; Q9967

== ENCOUNTER 2018-06-03 14:41 | Outpatient (CLI) | payer OTHER ==
[2018-06-03 18:58] LABS: HGB - HEMOGLOBIN 11.8 g/dL (12.0-16.0); MEAN CORPUSCULAR HEMOGLOBIN 24.5 pg (27.0-31.0); MEAN CORPUSCULAR HGB CONC 32.3 g/dL (32.0-36.0); MEAN PLATELET VOLUME 7.7 fL (7.9-10.8); RED BLOOD COUNT 4.8 10^6/uL (4.20-5.40); RED CELL DISTRIBUTION WIDTH 23.2 % (12.0-15.0); WHITE BLOOD COUNT 7.9 x10^3/uL (4.8-10.8)
[2018-06-03 19:18] LABS: ALBUMIN 3.7 g/dL (3.2-5.5); BILIRUBIN,TOTAL 0.4 mg/dL (0.2-1.0); CREATININE 0.6 mg/dL (0.4-1.0); TOTAL PROTEIN 7.5 g/dL (6.7-8.2); URIC ACID 3.9 mg/dL (2.6-7.2)
[2018-06-03 19:29] LABS: CREATININE,URINE 58.4 mg/dL; MICROALBUM/CREATININE RATIO,UR 8.6 ug/mg (<30.0); MICROALBUMIN,URINE 0.5 mg/dL (0-300.0)
== END 2018-06-03 23:59 | disposition home or self-care (01) ==
LOC: LAB.N 14:41
PROVIDERS: ATTEND Nurse Practitioner Obstetrics & Gynecology
DX: R51 Headache (principal)
CPT/HCPCS: 36415; 80053; 82043; 82570; 84550; 85027

== ENCOUNTER 2018-09-30 15:38 | Outpatient (CLI) | payer OTHER ==
--- NOTE | 2018-09-30 22:05 | Ultrasound Report ---
Reason: IRREGULAR MENSTRATION Procedure Date: 09/30/2018 Accession Number: [id number] / [id number] Procedure: US - Pelvic w/Transvaginal CPT Code: FULL RESULT: EXAM: PELVIC ULTRASOUND EXAM DATE: 09/30/2018 04:29 PM. CLINICAL HISTORY: IRREGULAR MENSTRUATION. COMPARISON: PELVIS COMPLETE 05/21/2018 11:02 AM. TECHNIQUE: Realtime transabdominal pelvic scan performed to identify the uterus and adnexa and as an overview of other pelvic structures, followed by transvaginal scan to provide greater detail of the uterus and adnexa, with static image documentation. FINDINGS: Uterus: Uterus measures 6.6 x 3.7 x 6.1 cm, volume 77.6 cc. Normal overall size and echotexture. Masses: None. Endometrium: 2.2 mm. Normal. Cervix: Unremarkable. Right Ovary: Right ovary measures 2.5 x 1.3 x 1.8 cm, volume 3.1 cc. Subcentimeter follicles noted. Normal echotexture and blood flow. Left Ovary: Left ovary measures 1.7 x 1.5 x 2.2 cm, volume 2.9 cc. Subcentimeter follicles noted. Normal echotexture and blood flow. Free Fluid: None. Other: None. IMPRESSION: Normal pelvic ultrasound. RADIA
== END 2018-09-30 15:39 | disposition home or self-care (01) ==
LOC: DI 15:38
PROVIDERS: ATTEND Nurse Practitioner Obstetrics & Gynecology
DX: N92.6 Irregular menstruation, unspecified (principal)
CPT/HCPCS: 76830; 76856

== ENCOUNTER 2018-11-04 14:44 | Outpatient (CLI) | payer OTHER | END 2018-11-04 14:45 | disposition critical access hospital (66) | LOC: EMS 14:44 | PROVIDERS: ATTEND Surgery | DX: R51 Headache (principal); M54.5 Low back pain; V43.52XA Car driver injured in collision with other type car in traffic accident, initial encounter; Y92.414 Local residential or business street as the place of occurrence of the external cause ==

== ENCOUNTER 2018-11-04 15:01 | Emergency (ER) | payer OTHER ==
[2018-11-04 15:06] VITALS: BP 113/66
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
== END 2018-11-04 15:59 | disposition home or self-care (01) ==
LOC: EDUNIT# → ED 15:01
DX: S16.1XXA Strain of muscle, fascia and tendon at neck level, initial encounter (principal); M54.5 Low back pain; V43.52XA Car driver injured in collision with other type car in traffic accident, initial encounter
CPT/HCPCS: 99281; 99282

== ENCOUNTER 2019-02-26 23:44 | Emergency (ER) | payer OTHER ==
--- NOTE | 2019-02-26 23:54 | ED Physician Documentation ---
PD HPI LOWER EXT INJURY - Stated complaint Stated Complaint: ANKLE PX - Chief complaint Chief Complaint: Ext Problem - History obtained from History obtained from: Patient - History of Present Illness PD HPI LOW EXT INJURY LOCATION: Right, Ankle Type of injury: Twist Where injury occurred: Street Timing - onset: Enter time (17:00), Today Timing - details: Abrupt onset Improved by: Rest Worsened by: Moving, Palpating Associated symptoms: Swelling Recently seen: Not recently seen - Additional information Additional information: approximately 5 PM today "rolled" ankle when she stepped on edge of concrete surface. She had pain at the time of the injury but was able to weight bear; however, pain and swelling have steadily worsened and thus comes to ED for evaluation Review of Systems Musculoskeletal: reports: Joint pain, Joint swelling, Pain with weight bearing Neurologic: denies: Focal weakness, Numbness PD PAST MEDICAL HISTORY - Past Medical History Cardiovascular: None Respiratory: Other (had some subcutaneous emphysema after pushing during labor, also developed mild hemolytic blood transfusion reaction post , chest CT and angio's negative for PE.) GI: None : None - Past Surgical History Past Surgical History: No - Present Medications Home Medications: Ambulatory Orders Medication Instructions Recorded Confirmed Prenatl Vit6/Iron/FA/B12/Ca/D3 1 tab PO DAILY 01/20/18 01/20/18 [Mteryti Combo Pack] Hydrocodone/Acetaminophen 1 - 2 each PO Q6H PRN #10 tablet 02/27/19 [Hydrocodon-Acetaminophen 5-325] - Allergies Allergies/Adverse Reactions: Allergies Allergy/AdvReac Type Severity Reaction Status Date / Time No Known Drug Allergies Allergy Verified 11/04/18 15:06 - Social History Does the pt smoke?: No Smoking Status: Never smoker Does the pt have substance abuse?: No - Immunizations Immunizations are current?: Yes - POLST Patient has POLST: No PD ED PE NORMAL - Vitals Vital signs reviewed: Yes - General General: Alert and oriented X 3, No acute distress, Well developed/nourished - Neuro Neuro: No motor deficit, No sensory deficit PD ED PE EXPANDED - Extremities Extremities: Tenderness, Limited ROM, Swelling, Right ankle Results - Vitals Vitals: Vital Signs - 24 hr 02/26/19 02/27/19 23:47 01:21 Temperature 36.9 C Heart Rate 85 78 Respiratory 16 18 Rate Blood Pressure 122/60 133/72 H O2 Saturation 100 99 Oxygen O2 Source Room air - Rads (name of study) right ankle xrays Radiology: Prelim report reviewed, See rad report PD MEDICAL DECISION MAKING - ED course Complexity details: reviewed results, re-evaluated patient, considered differential, d/w patient Departure - Departure Disposition: 01 Home, Self Care Clinical Impression: Sprain of ankle Condition: Good Instructions: ED Sprain Ankle W X Ray, ED Crutch Walking Follow-Up: Ian Bueno MD [Provider Admit Priv/Credential] - Within 1 week Prescriptions: Hydrocodone/Acetaminophen [Hydrocodon-Acetaminophen 5-325] 1 - 2 each PO Q6H PRN #10 tablet PRN Reason: pain Discharge Date/Time: 02/27/19 01:20
--- NOTE | 2019-02-27 00:26 | XRAY Report ---
Reason: injury, pain, swelling Procedure Date: 02/27/2019 Accession Number: [id number] / [id number] Procedure: XR - Ankle 3 View RT CPT Code: Final Report FULL RESULT: EXAM: RIGHT ANKLE RADIOGRAPHY EXAM DATE: 02/27/2019 12:17 AM. CLINICAL HISTORY: Injury, pain, swelling. COMPARISON: None. TECHNIQUE: 3 views. FINDINGS: Bones: No fracture seen. Joints: No dislocation. Ankle mortise appears intact. No ankle joint effusion. Soft Tissues: Mild soft tissue swelling. IMPRESSION: 1. No fracture or dislocation seen. RADIA
[2019-02-27] MEDS ORDERED: HYDROcod/ACET 5/325 Prepack 4 PO STA (01:11)
[2019-02-27 01:21] VITALS: BP 133/72
== END 2019-02-27 01:20 | disposition home or self-care (01) ==
LOC: ED 23:44
DX: S93.401A Sprain of unspecified ligament of right ankle, initial encounter (principal); X50.1XXA Overexertion from prolonged static or awkward postures, initial encounter; Y93.01 Activity, walking, marching and hiking; Y92.410 Unspecified street and highway as the place of occurrence of the external cause
CPT/HCPCS: 99283